=== PATIENT | female | born 1995 | race Caucasian/White ===

== ENCOUNTER 2020-04-24 12:30 | Outpatient (REF) | payer OTHER, SELFPAY ==
[2020-04-24 13:29] LABS: MANUAL DIFF FLAG NO
[2020-04-24 13:51] LABS: Basophils Percent Auto 0.6 % (0-2); Eosinophils Absolute Auto 0.1 X10*3/uL (0.0-0.4); Eosinophils Percent Auto 1.3 % (0-4); Hematocrit 41.6 % (37-47); Hemoglobin 14.1 g/dl (12.0-16.0); Imm Gran Abs Auto 0.01 X10*3/uL (0.00-0.03); Imm Gran Pct Auto 0.1 % (0.0-0.4); Lymphocytes Absolute Auto 1.9 X10*3/uL (1.2-4.9); Mean Corpuscular HGB Conc 33.9 g/dl (31.0-35.0); Mean Corpuscular Hemoglobin 29.8 pg (27.0-33.0); Mean Corpuscular Volume 87.9 fL (80-98); Mean Platelet Volume 9.6 fL (9.4-12.3); Monocytes Absolute Auto 0.4 X10*3/uL (0.1-1.2); Neutrophils Absolute Auto 4.5 X10*3/uL (2.0-8.3); Platelet Count 332 X10*3/uL (160-400); Red Blood Count 4.73 X10*6/uL (4.20-5.50); Red Cell Distribution Width 11.2 % (11.0-16.0)
[2020-04-24 14:46] LABS: Alanine Aminotransferase 13 U/L (0-31); Albumin Level 4.5 g/dL (3.5-5.0); Alkaline Phosphatase 37 U/L (39-117); Anion Gap 15 (12-20); Aspartate Amino Transferase 16 U/L (5-31); Bilirubin Total 1.1 mg/dL (0.0-1.0); Blood Urea Nitrogen 11 mg/dL (9-16); Calcium 9.5 mg/dL (8.4-10.2); Carbon Dioxide 24 mmol/L (22-29); Chloride 105 mmol/L (96-108); Estimated Glomerular Filt Rate > 60; Glucose Random 67 mg/dL (60-115); Potassium 4.8 mmol/l (3.3-5.1); Sodium 139 mmol/L (135-145); Total Protein 7.2 g/dL (6.5-8.0)
== END 2020-04-24 12:31 | disposition home or self-care (01) ==
LOC: HO.WFDLDS 12:30
PROVIDERS: Visit Provider Family Medicine
DX: R10.32 Left lower quadrant pain (principal)
CPT/HCPCS: 36415; 80053; 85025

== ENCOUNTER 2020-05-17 12:12 | Outpatient (REF) | payer OTHER, SELFPAY ==
[2020-05-17 13:25] LABS: Bilirubin Direct 0.3 mg/dL (0.0-0.5); Bilirubin Total 0.6 mg/dL (0.0-1.0)
[2020-05-17 13:29] LABS: Alanine Aminotransferase 16 U/L (0-31); Albumin Level 4.1 g/dL (3.5-5.0); Alkaline Phosphatase 52 U/L (39-117); Aspartate Amino Transferase 18 U/L (5-31); Cholesterol 170 mg/dL; HDL Cholesterol 51 mg/dL; LDL Cholesterol Calculated 109 mg/dl; Total Protein 6.8 g/dL (6.5-8.0); Triglycerides 51 mg/dL
== END 2020-05-17 12:13 | disposition home or self-care (01) ==
LOC: HO.LAB 12:12
PROVIDERS: PCP Family Medicine; Visit Provider Dermatology
DX: L70.0 Acne vulgaris (principal)
CPT/HCPCS: 36415; 80061; 80076

== ENCOUNTER 2020-05-26 20:54 | Emergency (ER) | payer OTHER, SELFPAY ==
--- NOTE | ~2020-05-26 | CT_ITS ---
EXAMINATION: CT ABDOMEN AND PELVIS WITHOUT CONTRAST CLINICAL INFORMATION: Nausea and vomiting. Lower abdominal pain. COMPARISON: 11/25/2019. TECHNIQUE: Contiguous axial thin section helical images of the abdomen and pelvis were performed without oral or IV contrast. The data set was reformatted in the coronal and sagittal planes and reviewed on an independent workstation. DLP: 394 mGy-cm. FINDINGS: The visualized lung bases are clear. The visualized portions of the heart are unremarkable. The liver is of normal size and attenuation without focal lesions nor intrahepatic biliary ductal dilation. A normal gallbladder is identified. There is no wall thickening or discernible pericholecystic fluid. The spleen, pancreas, adrenal glands are unremarkable. Both kidneys are of normal size and attenuation without hydronephrosis or nephrolithiasis. There is no abdominal free fluid. There is neither mesenteric nor retroperitoneal lymphadenopathy. Normal unopacified loops of small and large bowel are identified. A normal appendix is identified. There is an approximately 2.6 cm right ovarian cyst. There is no pelvic free fluid. The urinary bladder is unremarkable. There is neither pelvic nor inguinal lymphadenopathy. Bone windows: Neither sclerotic nor lytic bone lesions are identified. CT/CT abdomen pelvis wo con IMPRESSION: No acute abdominal or pelvic inflammatory or infectious processes. Neither hydronephrosis nor nephrolithiasis. 2.6 MET right ovarian cyst. Automated exposure control (Care Dose) Adjustment of the mA and/or kv according to patient size (this includes techniques or standardized protocols for targeted exams where dose is matched to indication / reason for exam; i.e. extremities or head).
[2020-05-26 21:07] VITALS: BP 113/57; PULSE 146; RESP 22; TEMP 37.1; O2SAT 98; BMI 22.8
[2020-05-26 21:29] VITALS: BP 121/85; PULSE 114; RESP 18; TEMP 36.8; O2SAT 99
[2020-05-26] MEDS: 0.9 % Sodium Chloride 1,000 ML 999 ML IVCONT (21:32)
[2020-05-26] MEDS: ondansetron HCL 4 MG/2 ML VIAL IVPUSH (21:33)
--- NOTE | 2020-05-26 21:33 | PC.NURSE ---
iv inserted, labs drawn, vitals obtained- cardiac cath tech applied, sinus tach low 100s, c/o generalized pain 11/20, pt medicated per order, is aware we need a urine, will continue to monitor.
[2020-05-26 21:34] LABS: Basophils Percent Auto 0.5 % (0-2); Eosinophils Percent Auto 0.3 % (0-4); Hematocrit 42.6 % (37-47); Hemoglobin 14.4 g/dl (12.0-16.0); Imm Gran Abs Auto 0.01 X10*3/uL (0.00-0.03); Imm Gran Pct Auto 0.2 % (0.0-0.4); Lymphocytes Absolute Auto 0.2 X10*3/uL (1.2-4.9); Lymphocytes Percent Auto 2.4 % (20-40); MANUAL DIFF FLAG SCAN; Mean Corpuscular HGB Conc 33.8 g/dl (31.0-35.0); Mean Corpuscular Hemoglobin 29.3 pg (27.0-33.0); Mean Corpuscular Volume 86.6 fL (80-98); Mean Platelet Volume 9.9 fL (9.4-12.3); Monocytes Absolute Auto 0.3 X10*3/uL (0.1-1.2); Neutrophils Absolute Auto 5.7 X10*3/uL (2.0-8.3); Neutrophils Percent Auto 91.6 % (45-73); Platelet Count 229 X10*3/uL (160-400); Red Blood Count 4.92 X10*6/uL (4.20-5.50); Red Cell Distribution Width 11.4 % (11.0-16.0); SCAN SMEAR FLAG 1; White Blood Count 6.2 X10*3/uL (4.8-10.8)
[2020-05-26 21:49] LABS: COVID-19 Test Negative (Negative)
--- NOTE | 2020-05-26 21:50 | ED_ITS ---
HPI - Nausea/Vomiting/Diarrhea General Chief complaint: Nausea/Vomiting/Diarrhea Stated complaint: Vomiting/body aches Time Seen by Provider: 05/26/20 21:12 Source: patient Mode of arrival: ambulatory Limitations: no limitations History of Present Illness HPI Narrative: 25-year-old female otherwise healthy presenting today with 1 day history of nausea, vomiting, no diarrhea symptoms started since this morning, patient described it as severe and constant (vomited more than 10 times today), symptoms associated with generalized body ache and joint pain, no shortness of breath or chest pain, no abdominal pain. Confirmed that she was following self quarantine and isolation unwilling face mask all the time and declined any recent sick contacts. Patient also declined any recent travel or use of antibiotic. Related Data Home Medications Medication Instructions Recorded Confirmed lamotrigine 25 mg tablet 25 mg PO DAILY tab 04/24/20 Previous Rx's Medication Instructions Recorded ibuprofen 800 mg tablet 800 mg PO Q8H PRN 10 Days #30 tab 04/24/20 polyethylene glycol 3350 17 gram 17 g PO DAILY PRN 10 Days #10 ea 04/24/20 oral powder packet norethindrone (contraceptive) 0.35 0.35 mg PO DAILY #28 tab 05/09/20 mg tablet ondansetron HCl [Zofran] 4 mg PO Q8H PRN #7 tab 05/27/20 Allergies Allergy/AdvReac Type Severity Reaction Status Date / Time No Known Allergies Allergy Verified 05/26/20 21:10 Review of Systems Review of Systems: All other systems are reviewed and are negative Constitutional: Reports as per HPI and Reports no additional constitutional complaints Eyes: Reports as per HPI and Reports no additional eye complaints Reports system reviewed and no additional complaints, except as documented Cardiovascular: Reports as per HPI and Reports no additional cardiovascular complaints Respiratory: Reports as per HPI and Reports no additional respiratory complaints Gastrointestinal: Reports as per HPI and Reports no additional gastrointestinal complaints Genitourinary: Reports no additional female genitourinary complaints Musculoskeletal: Reports no additional musculoskeletal complaints Skin/Breast: Reports system reviewed and no additional complaints, except as docu Psychiatric: Reports no additional psychiatric complaints Endocrine: Reports no additional endocrine complaints Hematologic/Lymphatic: Reports no additional hematologic/lymphatic complaints Allergic/Immunologic: Reports no additional allergic/immunologic complaints Reports system reviewed and no additional complaints, except as documented and Reports Abnormal speech present [facility] Past Medical History Medical History No known health problems Social History Social History Alcohol intake: never Smoked in Last 30 Days: No Use of substances other than those prescribed or required for medical reasons: No Advance Directives: No Advance Directives Information Provided: No Physical Exam Vital Signs: Vital Signs: Last Vital Signs Temp 98.4 F 05/26/20 23:05 Pulse 105 H 05/26/20 23:05 Resp 16 05/26/20 23:05 BP 106/65 05/26/20 23:05 Pulse Ox 98 05/26/20 23:05 Body Mass Index 22.8 Vital signs have been reviewed as normal and appeared to be correct. Blood pressure normal. Heart rate in the high range likely due to dehydration.. Respiration rate normal. Temperature normal. Oxygen saturation normal. Appearance: Alert. Oriented X3. No acute distress. Head: Normal external exam. Normocephalic. Atraumatic. No Payne signs noted. No raccoon eyes noted Eyes: PERRLA. EOMI. Conjunctiva and sclera normal. Eyelids normal. ENT: EAC normal. TM's Normal. Pharynx normal. Uvula midline. Dry mucous membranes. No trismus noted. No drooling noted. No muffled voice noted. Neck: Normal inspection. Neck supple. FROM. No adenopathy. Thyroid Normal. No meningeal signs. No neck mass noted. CVS: Normal heart rate and rhythm. Heart sound normal. No murmurs noted. Pulses normal throughout. Respiratory: No respiratory distress. Painless inspiration. Breath sounds normal. No wheezes/rales/rhonchi noted. Chest nontender. No accessory muscle usage noted or decreased air movement noted. Abdomen: Soft and nontender. Bowel sounds normal in all 4 quadrants. No d istention noted. No organomegaly noted. No visible injury noted. Back: No CVA tenderness. Full range of motion noted. Skin: Skin warm and dry. Normal skin color. Normal skin turgor. No rashes/l esions/lacerations noted. Extremities: No lower extremity edema. Extremities exhibit normal range of motion. Extremities nontender. Neuro: Oriented X 3. No motor deficit. No sensory deficit. Reflexes normal. Course Course Course Narrative: Assessment and plan. 25-year-old female came in with nausea vomiting and diarrhea, patient received IV fluid and Zofran, patient now feels better, able to tolerate p.o. intake. Will discharge the patient with Zofran prescription and encouraged to drink plenty of fluids. COVID-19 is negative today. MDM - Nausea/Vomiting/Diarrhea Lab Data Attestation: I reviewed the patient's lab results. Result diagrams: 05/26/20 21:26 05/26/20 21: Labs: Lab Results 05/26/20 05/26/20 05/26/20 Range/Units 21:26 21:26 21:26 WBC 6.2 (4.8-10.8) X10*3/uL RBC 4.92 (4.20-5.50) X10*6/uL Hgb 14.4 (12.0-16.0) g/dl Hct 42.6 (37-47) % MCV 86.6 (80-98) fL MCH 29.3 (27.0-33.0) pg MCHC 33.8 (31.0-35.0) g/dl RDW 11.4 (11.0-16.0) % Plt Count 229 D (160-400) X10*3/uL MPV 9.9 (9.4-12.3) fL Immature Gran % (Auto) 0.2 (0.0-0.4) % Neut % (Auto) 91.6 H (45-73) % Lymph % (Auto) 2.4 L (20-40) % [place] % (Auto) 5.0 (2-11) % Eos % (Auto) 0.3 (0-4) % Baso % (Auto) 0.5 (0-2) % Lymph # (Auto) 0.2 L (1.2-4.9) X10*3/uL [place] # (Auto) 0.3 (0.1-1.2) X10*3/uL Eos # (Auto) 0.0 (0.0-0.4) X10*3/uL Baso # (Auto) 0.0 (0.0-0.2) X10*3/uL Abs Immat Gran (auto) 0.01 (0.00-0.03) X10*3/uL Absolute Neuts (auto) 5.7 (2.0-8.3) X10*3/uL Absolute Nucleated RBC 0.000 (0.0-0.012) X10*3/uL Nucleated RBC % (auto) 0.0 (0.0-0.2) /100WBC Smear Tech's Comments VERIFIED Sodium 137 (135-145) mmol/L Potassium 3.9 (3.3-5.1) mmol/L Chloride 103 (96-108) mmol/L Carbon Dioxide 21 L (22-29) mmol/L Anion Gap 17 (12-20) BUN 19 H D (9-16) mg/dL Creatinine 0.67 (0.5-1.4) mg/dL Estim Creat Clear Calc 93.8 Estimated GFR > 60 Random Glucose 131 H D (60-115) mg/dL Calcium 8.3 L D (8.4-10.2) mg/dL Total Bilirubin 1.3 H (0.0-1.0) mg/dL Direct Bilirubin 0.4 (0.0-0.5) mg/dL AST 22 (5-31) U/L ALT 18 (0-31) U/L Alkaline Phosphatase 53 (39-117) U/L Total Protein 6.5 (6.5-8.0) g/dL Albumin 3.8 (3.5-5.0) g/dL Lipase 12 Cancelled (8-78) U/L Urine Color Urine Appearance Urine pH (5.0-8.0) Ur Specific [place] (1.005-1.025) Urine Protein (NEG-TRACE) MG/DL Urine Glucose (UA) (NEG) MG/DL Urine Ketones (NEG) MG/DL Urine Blood (NEG) Urine Nitrite (NEG) Ur Leukocyte Esterase (NEG) Urine Test (NEGATIVE) COVID-19 (JEAN) (Negative) COVID-19 Clin Com 05/26/20 05/26/20 Range/Units 21:26 23:15 WBC (4.8-10.8) X10*3/uL RBC (4.20-5.50) X10*6/uL Hgb (12.0-16.0) g/dl Hct (37-47) % MCV (80-98) fL MCH (27.0-33.0) pg MCHC (31.0-35.0) g/dl RDW (11.0-16.0) % Plt Count (160-400) X10*3/uL MPV (9.4-12.3) fL Immature Gran % (Auto) (0.0-0.4) % Neut % (Auto) (45-73) % Lymph % (Auto) (20-40) % [place] % (Auto) (2-11) % Eos % (Auto) (0-4) % Baso % (Auto) (0-2) % Lymph # (Auto) (1.2-4.9) X10*3/uL [place] # (Auto) (0.1-1.2) X10*3/uL Eos # (Auto) (0.0-0.4) X10*3/uL Baso # (Auto) (0.0-0.2) X10*3/uL Abs Immat Gran (auto) (0.00-0.03) X10*3/uL Absolute Neuts (auto) (2.0-8.3) X10*3/uL Absolute Nucleated RBC (0.0-0.012) X10*3/uL Nucleated RBC % (auto) (0.0-0.2) /100WBC Smear Tech's Comments Sodium (135-145) mmol/L Potassium (3.3-5.1) mmol/L Chloride (96-108) mmol/L Carbon Dioxide (22-29) mmol/L Anion Gap (12-20) BUN (9-16) mg/dL Creatinine (0.5-1.4) mg/dL Estim Creat Clear Calc Estimated GFR Random Glucose (60-115) mg/dL Calcium (8.4-10.2) mg/dL Total Bilirubin (0.0-1.0) mg/dL Direct Bilirubin (0.0-0.5) mg/dL AST (5-31) U/L ALT (0-31) U/L Alkaline Phosphatase (39-117) U/L Total Protein (6.5-8.0) g/dL Albumin (3.5-5.0) g/dL Lipase (8-78) U/L Urine Color DARK YELLOW Urine Appearance CLEAR Urine pH 7.0 (5.0-8.0) Ur Specific [place] 1.025 (1.005-1.025) Urine Protein TRACE (NEG-TRACE) MG/DL Urine Glucose (UA) NEG (NEG) MG/DL Urine Ketones >=80 (NEG) MG/DL Urine Blood NEG (NEG) Urine Nitrite NEG (NEG) Ur Leukocyte Esterase NEG (NEG) Urine Test NEGATIVE (NEGATIVE) COVID-19 (JEAN) Negative (Negative) COVID-19 Clin Com See Note Imaging Data CT scan - abdomen: Radiologist's impression: No acute abdominal or pelvic inflammatory or infectious processes. Neither hydronephrosis nor nephrolithiasis. 2.6 MET right ovarian cyst. Discharge Plan Discharge Clinical Impression: Gastroenteritis Patient Disposition: Home, Self-Care Instructions: Acute Nausea and Vomiting (ED) Prescriptions: New ondansetron HCl [Zofran] 4 mg tablet 4 mg PO Q8H PRN (Reason: nausea and vomiting) Qty: 7 RF: 0 No Action norethindrone (contraceptive) 0.35 mg tablet 0.35 mg PO DAILY Qty: 28 RF: 0 lamotrigine 25 mg tablet 25 mg PO DAILY RF: 0 polyethylene glycol 3350 [Miralax] 17 gram powder in packet 17 g PO DAILY PRN (Reason: constipation) 10 Days Qty: 10 RF: 0 ibuprofen 800 mg tablet 800 mg PO Q8H PRN (Reason: pain) 10 Days Qty: 30 RF: 0 Referrals: Physician,Unknown [Primary Care Provider] - 2 days
[2020-05-26 21:54] LABS: SLIDE REVIEW VERIFIED
[2020-05-26 21:59] LABS: Alanine Aminotransferase 18 U/L (0-31); Albumin Level 3.8 g/dL (3.5-5.0); Alkaline Phosphatase 53 U/L (39-117); Anion Gap 17 (12-20); Aspartate Amino Transferase 22 U/L (5-31); Bilirubin Direct 0.4 mg/dL (0.0-0.5); Bilirubin Total 1.3 mg/dL (0.0-1.0); Blood Urea Nitrogen 19 mg/dL (9-16); Calcium 8.3 mg/dL (8.4-10.2); Carbon Dioxide 21 mmol/L (22-29); Chloride 103 mmol/L (96-108); Creatinine Clr Calc Pharmacy 93.8; Estimated Glomerular Filt Rate > 60; Glucose Random 131 mg/dL (60-115); Lipase 12 U/L (8-78); Potassium 3.9 mmol/L (3.3-5.1); Sodium 137 mmol/L (135-145); Total Protein 6.5 g/dL (6.5-8.0)
[2020-05-26 22:00] VITALS: BP 107/67; PULSE 108; RESP 20; TEMP 37.9; O2SAT 99
[2020-05-26 23:05] VITALS: BP 106/65; PULSE 105; RESP 16; TEMP 36.9; O2SAT 98
[2020-05-26 23:41] LABS: Glucose Urine UA NEG (NEG); Leukocyte Esterase Urine NEG (NEG); Nitrite Urine NEG (NEG); Specific Gravity - Urine 1.025 (1.005-1.025); Urine Blood NEG (NEG); Urine Ketones >=80 MG/DL (NEG); Urine Protein TRACE MG/DL (NEG-TRACE)
[2020-05-26 23:45] LABS: Appearance Urine CLEAR; Color Urine DARK YELLOW
[2020-05-27 00:24] LABS: UPreg QC Valid YES; Urine Pregnancy NEGATIVE (NEGATIVE)
--- NOTE | 2020-05-27 00:34 | PC.NURSE ---
PT TO CT IN STRETCHER.
== END 2020-05-27 01:40 | disposition home or self-care (01) ==
PROVIDERS: Emergency Provider Emergency Medicine
DX: K52.9 Noninfective gastroenteritis and colitis, unspecified (principal); Z20.822 Contact with and (suspected) exposure to COVID-19
CPT/HCPCS: 36415; 74176; 80048; 80076; 81003; 81025; 83690; 85025; 87635; 96361; 96374; 99284; J2405

== ENCOUNTER 2020-06-14 11:12 | Outpatient (REF) | payer OTHER, SELFPAY ==
[2020-06-14 11:49] LABS: MANUAL DIFF FLAG NO
[2020-06-14 11:52] LABS: Basophils Absolute Auto 0.1 X10*3/uL (0.0-0.2); Basophils Percent Auto 1.6 % (0-2); Eosinophils Absolute Auto 0.2 X10*3/uL (0.0-0.4); Eosinophils Percent Auto 3.4 % (0-4); Hematocrit 40.5 % (37-47); Hemoglobin 13.6 g/dl (12.0-16.0); Imm Gran Abs Auto 0.01 X10*3/uL (0.00-0.03); Imm Gran Pct Auto 0.2 % (0.0-0.4); Lymphocytes Absolute Auto 1.7 X10*3/uL (1.2-4.9); Lymphocytes Percent Auto 37.7 % (20-40); Mean Corpuscular HGB Conc 33.6 g/dl (31.0-35.0); Mean Corpuscular Hemoglobin 29.2 pg (27.0-33.0); Mean Corpuscular Volume 86.9 fL (80-98); Mean Platelet Volume 9.5 fL (9.4-12.3); Monocytes Absolute Auto 0.4 X10*3/uL (0.1-1.2); Monocytes Percent Auto 8.8 % (2-11); Neutrophils Absolute Auto 2.1 X10*3/uL (2.0-8.3); Neutrophils Percent Auto 48.3 % (45-73); Platelet Count 281 X10*3/uL (160-400); Red Blood Count 4.66 X10*6/uL (4.20-5.50); Red Cell Distribution Width 11.9 % (11.0-16.0); White Blood Count 4.4 X10*3/uL (4.8-10.8)
[2020-06-14 12:32] LABS: Alanine Aminotransferase 20 U/L (0-31); Albumin Level 4.3 g/dL (3.5-5.0); Alkaline Phosphatase 55 U/L (39-117); Anion Gap 11 (12-20); Aspartate Amino Transferase 20 U/L (5-31); Bilirubin Total 0.9 mg/dL (0.0-1.0); Blood Urea Nitrogen 14 mg/dL (9-16); Calcium 9.4 mg/dL (8.4-10.2); Carbon Dioxide 26 mmol/L (22-29); Chloride 106 mmol/L (96-108); Estimated Glomerular Filt Rate > 60; Glucose Random 88 mg/dL (60-115); Potassium 4.8 mmol/L (3.3-5.1); Sodium 138 mmol/L (135-145); Total Protein 7.1 g/dL (6.5-8.0)
[2020-06-14 12:52] LABS: TSH reflex Free T4 0.84 uIU/mL (0.32-4.0)
== END 2020-06-14 11:13 | disposition home or self-care (01) ==
LOC: HO.LAB 11:12
PROVIDERS: PCP Family Medicine; Visit Provider Family Medicine
DX: Z00.00 Encounter for general adult medical examination without abnormal findings (principal); R63.5 Abnormal weight gain
CPT/HCPCS: 36415; 80053; 84443; 85025

== ENCOUNTER 2020-08-21 09:53 | Outpatient (REF) | payer OTHER, SELFPAY ==
[2020-08-21 11:05] LABS: Alanine Aminotransferase 15 U/L (0-31); Albumin Level 4.2 g/dL (3.5-5.0); Alkaline Phosphatase 48 U/L (39-117); Aspartate Amino Transferase 14 U/L (5-31); Bilirubin Direct 0.3 mg/dL (0.0-0.5); Bilirubin Total 0.9 mg/dL (0.0-1.0); Cholesterol 163 mg/dL; HDL Cholesterol 48 mg/dL; LDL Cholesterol Calculated 107 mg/dl; Total Protein 6.3 g/dL (6.5-8.0); Triglycerides 41 mg/dL
[2020-08-21 11:11] LABS: Reflex LDLD? No
== END 2020-08-21 09:54 | disposition home or self-care (01) ==
LOC: HO.LAB 09:53
PROVIDERS: PCP Family Medicine; Visit Provider Physician Assistant Medical
DX: L70.0 Acne vulgaris (principal); Z79.899 Other long term (current) drug therapy
CPT/HCPCS: 36415; 80061; 80076

== ENCOUNTER 2020-09-27 14:27 | Outpatient (REF) | payer OTHER, SELFPAY ==
[2020-09-27 15:29] LABS: Alanine Aminotransferase 24 U/L (0-31); Albumin Level 4.5 g/dL (3.5-5.0); Alkaline Phosphatase 40 U/L (39-117); Aspartate Amino Transferase 21 U/L (5-31); Bilirubin Direct 0.2 mg/dL (0.0-0.5); Bilirubin Total 0.4 mg/dL (0.0-1.0); Cholesterol 208 mg/dL; HDL Cholesterol 64 mg/dL; LDL Cholesterol Calculated 128 mg/dl; Total Protein 7.2 g/dL (6.5-8.0); Triglycerides 83 mg/dL
[2020-09-27 15:31] LABS: Alanine Aminotransferase 23 U/L (0-31); Albumin Level 4.5 g/dL (3.5-5.0); Alkaline Phosphatase 41 U/L (39-117); Anion Gap 10 (12-20); Aspartate Amino Transferase 21 U/L (5-31); Bilirubin Total 0.4 mg/dL (0.0-1.0); Blood Urea Nitrogen 11 mg/dL (9-16); Calcium 9.8 mg/dL (8.4-10.2); Carbon Dioxide 25 mmol/L (22-29); Chloride 106 mmol/L (96-108); Estimated Glomerular Filt Rate > 60; Glucose Random 85 mg/dL (60-115); Potassium 5.2 mmol/L (3.3-5.1); Sodium 136 mmol/L (135-145); Total Protein 7.2 g/dL (6.5-8.0)
== END 2020-09-27 14:28 | disposition home or self-care (01) ==
LOC: HO.LAB 14:27
PROVIDERS: Absent Provider Physician Assistant Medical; PCP Family Medicine; Visit Provider Family Medicine
DX: L70.0 Acne vulgaris (principal); B35.1 Tinea unguium; Z79.899 Other long term (current) drug therapy
CPT/HCPCS: 36415; 80053; 80061; 80076; 82248

== ENCOUNTER 2020-10-25 16:09 | Outpatient (REF) | payer OTHER, SELFPAY ==
[2020-10-25 17:46] LABS: Alanine Aminotransferase 25 U/L (0-31); Albumin Level 4.4 g/dL (3.5-5.0); Alkaline Phosphatase 39 U/L (39-117); Aspartate Amino Transferase 25 U/L (5-31); Bilirubin Direct < 0.2 mg/dL (0.0-0.5); Bilirubin Total 0.4 mg/dL (0.0-1.0); Cholesterol 229 mg/dL; HDL Cholesterol 54 mg/dL; LDL Cholesterol Calculated 140 mg/dl; Total Protein 7.4 g/dL (6.5-8.0); Triglycerides 177 mg/dL
== END 2020-10-25 16:10 | disposition home or self-care (01) ==
LOC: HO.LAB 16:09
PROVIDERS: Absent Provider Physician Assistant Medical; PCP Family Medicine; Visit Provider Family Medicine
DX: L70.0 Acne vulgaris (principal); L85.3 Xerosis cutis; B35.1 Tinea unguium; Z79.899 Other long term (current) drug therapy
CPT/HCPCS: 36415; 80061; 80076

== ENCOUNTER 2020-11-26 16:10 | Outpatient (REF) | payer OTHER, SELFPAY ==
[2020-11-26 17:25] LABS: Alanine Aminotransferase 21 U/L (0-31); Albumin Level 4.2 g/dL (3.5-5.0); Alkaline Phosphatase 37 U/L (39-117); Aspartate Amino Transferase 19 U/L (5-31); Bilirubin Direct < 0.2 mg/dL (0.0-0.5); Bilirubin Total 0.2 mg/dL (0.0-1.0); Cholesterol 195 mg/dL; HDL Cholesterol 45 mg/dL; LDL Cholesterol Calculated 111 mg/dl; Total Protein 6.9 g/dL (6.5-8.0); Triglycerides 198 mg/dL
[2020-11-28 02:26] LABS: LDL Cholesterol Direct 124 mg/dL (<100)
== END 2020-11-26 16:11 | disposition home or self-care (01) ==
LOC: HO.LAB 16:10
PROVIDERS: PCP Family Medicine; Visit Provider Physician Assistant Medical
DX: L70.0 Acne vulgaris (principal); L85.3 Xerosis cutis; Z79.899 Other long term (current) drug therapy
CPT/HCPCS: 36415; 80061; 80076; 83721

== ENCOUNTER 2020-12-27 15:00 | Outpatient (REF) | payer OTHER, SELFPAY ==
[2020-12-27 16:03] LABS: MANUAL DIFF FLAG NO
[2020-12-27 16:12] LABS: Basophils Percent Auto 0.4 % (0-2); Eosinophils Percent Auto 0.6 % (0-4); Hematocrit 36.6 % (37-47); Hemoglobin 12.5 g/dl (12.0-16.0); Imm Gran Abs Auto 0.01 X10*3/uL (0.00-0.03); Imm Gran Pct Auto 0.2 % (0.0-0.4); Lymphocytes Absolute Auto 1.7 X10*3/uL (1.2-4.9); Lymphocytes Percent Auto 35.3 % (20-40); Mean Corpuscular HGB Conc 34.2 g/dl (31.0-35.0); Mean Corpuscular Hemoglobin 28.7 pg (27.0-33.0); Mean Corpuscular Volume 84.1 fL (80-98); Mean Platelet Volume 9.9 fL (9.4-12.3); Monocytes Absolute Auto 0.3 X10*3/uL (0.1-1.2); Monocytes Percent Auto 6.7 % (2-11); Neutrophils Absolute Auto 2.8 X10*3/uL (2.0-8.3); Neutrophils Percent Auto 56.8 % (45-73); Platelet Count 338 X10*3/uL (160-400); Red Blood Count 4.35 X10*6/uL (4.20-5.50); Red Cell Distribution Width 11.7 % (11.0-16.0); White Blood Count 4.9 X10*3/uL (4.8-10.8)
[2020-12-27 16:34] LABS: Alanine Aminotransferase 25 U/L (0-31); Albumin Level 4.4 g/dL (3.5-5.0); Alkaline Phosphatase 39 U/L (39-117); Anion Gap 11 (12-20); Aspartate Amino Transferase 25 U/L (5-31); Bilirubin Direct 0.2 mg/dL (0.0-0.5); Bilirubin Total 0.7 mg/dL (0.0-1.0); Blood Urea Nitrogen 7 mg/dL (9-16); Calcium 9.8 mg/dL (8.4-10.2); Carbon Dioxide 25 mmol/L (22-29); Chloride 102 mmol/L (96-108); Cholesterol 232 mg/dL; Estimated Glomerular Filt Rate > 60; Glucose Fasting 80 mg/dL (60-99); HDL Cholesterol 49 mg/dL; LDL Cholesterol Calculated 145 mg/dl; Potassium 4.1 mmol/L (3.3-5.1); Sodium 134 mmol/L (135-145); Total Protein 7.3 g/dL (6.5-8.0); Triglycerides 190 mg/dL
[2020-12-27 17:51] LABS: TSH reflex Free T4 0.84 uIU/mL (0.32-4.0)
== END 2020-12-27 15:01 | disposition home or self-care (01) ==
LOC: HO.LAB 15:00
PROVIDERS: Absent Provider Family Medicine; PCP Family Medicine; Visit Provider Physician Assistant Medical
DX: Z00.00 Encounter for general adult medical examination without abnormal findings (principal); Z20.822 Contact with and (suspected) exposure to COVID-19; B35.1 Tinea unguium; L70.0 Acne vulgaris; K13.0 Diseases of lips; L85.3 Xerosis cutis; Z79.899 Other long term (current) drug therapy
CPT/HCPCS: 80053; 80061; 80076; 82248; 84443; 85025; U0003; U0005

== ENCOUNTER 2021-01-16 15:47 | Outpatient (REF) | payer OTHER, SELFPAY ==
[2021-01-16 17:09] LABS: Erythrocyte Sedimentation Rate 16 MM/HR (0-20)
[2021-01-18 13:35] LABS: CRP High Sensitivity 3.8 mg/L
[2021-01-18 23:57] LABS: Anti Nuclear Antibody Screen POSITIVE (NEGATIVE); Anti Nuclear Antibody Titer 1:40 titer
== END 2021-01-16 15:48 | disposition home or self-care (01) ==
LOC: HO.LAB 15:47
PROVIDERS: PCP Family Medicine; Visit Provider Family Medicine
DX: M79.10 Myalgia, unspecified site (principal); R53.83 Other fatigue
CPT/HCPCS: 36415; 85652; 86038; 86039; 86141

== ENCOUNTER 2021-01-31 14:23 | Outpatient (REF) | payer OTHER, SELFPAY ==
[2021-01-31 15:30] LABS: Alanine Aminotransferase 22 U/L (0-31); Albumin Level 4.5 g/dL (3.5-5.0); Alkaline Phosphatase 45 U/L (39-117); Aspartate Amino Transferase 22 U/L (5-31); Bilirubin Direct 0.2 mg/dL (0.0-0.5); Bilirubin Total 0.4 mg/dL (0.0-1.0); Cholesterol 277 mg/dL; HDL Cholesterol 48 mg/dL; LDL Cholesterol Calculated 193 mg/dl; Total Protein 7.5 g/dL (6.5-8.0); Triglycerides 183 mg/dL
== END 2021-01-31 14:24 | disposition home or self-care (01) ==
LOC: HO.LAB 14:23
PROVIDERS: PCP Family Medicine; Visit Provider Physician Assistant Medical
DX: L70.0 Acne vulgaris (principal); L85.3 Xerosis cutis; K13.0 Diseases of lips; Z79.899 Other long term (current) drug therapy
CPT/HCPCS: 36415; 80061; 80076

== ENCOUNTER 2021-03-06 15:32 | Outpatient (REF) | payer OTHER, SELFPAY ==
[2021-03-06 16:48] LABS: Alanine Aminotransferase 28 U/L (0-31); Albumin Level 4.6 g/dL (3.5-5.0); Alkaline Phosphatase 48 U/L (39-117); Aspartate Amino Transferase 27 U/L (5-31); Bilirubin Direct 0.2 mg/dL (0.0-0.5); Bilirubin Total 0.4 mg/dL (0.0-1.0); Cholesterol 239 mg/dL; HDL Cholesterol 42 mg/dL; LDL Cholesterol Calculated 151 mg/dl; Total Protein 7.7 g/dL (6.5-8.0); Triglycerides 230 mg/dL
== END 2021-03-06 15:33 | disposition home or self-care (01) ==
LOC: HO.LAB 15:32
PROVIDERS: PCP Family Medicine; Visit Provider Physician Assistant Medical
DX: L70.0 Acne vulgaris (principal); L85.3 Xerosis cutis; Z79.899 Other long term (current) drug therapy; K13.0 Diseases of lips
CPT/HCPCS: 36415; 80061; 80076

== ENCOUNTER 2021-04-11 14:58 | Outpatient (REF) | payer OTHER, SELFPAY ==
[2021-04-11 16:08] LABS: Alanine Aminotransferase 26 U/L (0-31); Albumin Level 4.3 g/dL (3.5-5.0); Alkaline Phosphatase 51 U/L (39-117); Aspartate Amino Transferase 20 U/L (5-31); Bilirubin Direct 0.2 mg/dL (0.0-0.5); Bilirubin Total 0.5 mg/dL (0.0-1.0); Cholesterol 236 mg/dL; HDL Cholesterol 49 mg/dL; LDL Cholesterol Calculated 131 mg/dl; Total Protein 7.6 g/dL (6.5-8.0); Triglycerides 284 mg/dL
[2021-04-12 06:51] LABS: LDL Cholesterol Direct 149 mg/dL (<100)
== END 2021-04-11 14:59 | disposition home or self-care (01) ==
LOC: HO.LAB 14:58
PROVIDERS: PCP Family Medicine; Visit Provider Physician Assistant Medical
DX: L70.0 Acne vulgaris (principal); L85.3 Xerosis cutis; K13.0 Diseases of lips; Z79.899 Other long term (current) drug therapy
CPT/HCPCS: 36415; 80061; 80076; 83721

== ENCOUNTER 2021-05-22 15:49 | Outpatient (REF) | payer OTHER, SELFPAY ==
[2021-05-22 16:17] LABS: MANUAL DIFF FLAG NO
[2021-05-22 16:23] LABS: Hematocrit 38.2 % (37.0-47.0); Hemoglobin 12.9 g/dl (12.0-16.0); Lymphocytes Absolute Auto 1.6 X10*3/uL (1.2-4.9); Lymphocytes Percent Auto 51.6 % (20-40); Mean Corpuscular HGB Conc 33.8 g/dl (31.0-35.0); Mean Corpuscular Hemoglobin 28.8 pg (27.0-33.0); Mean Corpuscular Volume 85.3 fL (80.0-98.0); Mean Platelet Volume 8.9 fL (9.4-12.3); Monocytes Absolute Auto 0.3 X10*3/uL (0.1-1.2); Monocytes Percent Auto 10.4 % (2-11); Neutrophils Absolute Auto 1.2 x10*3/uL (2.0-8.3); Platelet Count 269 X10*3/uL (160-400); Red Blood Count 4.48 X10*6/uL (4.20-5.50); Red Cell Distribution Width 11.4 % (11.0-16.0); White Blood Count 3.2 X10*3/uL (4.8-10.8)
[2021-05-22 16:32] LABS: Estimated Average Glucose 88 mg/dL; Hemoglobin A1c % 4.7 %
[2021-05-22 17:40] LABS: Anion Gap 9 (12-20); Carbon Dioxide 28 mmol/L (22-29); Chloride 105 mmol/L (96-108); Cholesterol 276 mg/dL; Estimated Glomerular Filt Rate > 60; Glucose Random 88 mg/dL (60-115); HDL Cholesterol 58 mg/dL; LDL Cholesterol Calculated 196 mg/dl; Potassium 4.3 mmol/L (3.3-5.1); Sodium 138 mmol/L (135-145); Triglycerides 111 mg/dL
[2021-05-22 17:55] LABS: Blood Urea Nitrogen 10 mg/dL (9-16); Calcium 9.9 mg/dL (8.4-10.2)
== END 2021-05-22 15:50 | disposition home or self-care (01) ==
LOC: HO.LAB 15:49
PROVIDERS: PCP Family Medicine; Visit Provider Registered Nurse Psychiatric/Mental Health
DX: F41.1 Generalized anxiety disorder (principal); F32.9 Major depressive disorder, single episode, unspecified
CPT/HCPCS: 36415; 80048; 80061; 80335; 83036; 85025

== ENCOUNTER → 2021-05-23 15:00 | Outpatient (REF) | payer OTHER, SELFPAY ==
--- NOTE | 2021-05-23 | ECG_ITS ---
Test Reason : med therapy Blood Pressure : / mmHG Vent. Rate : 077 BPM Atrial Rate : 077 BPM P-R Int : 192 ms QRS Dur : 072 ms QT Int : 346 ms P-R-T Axes : 070 033 046 degrees QTc Int : 391 ms Normal sinus rhythm Low voltage QRS Borderline ECG When compared with ECG of 20-AUG-2012 22:39, nonspecific T wave changes not present in precordial leads Referred By: ALY HIGGINBOTHAM Electronically Signed By:Dwight Loera
== END ==
LOC: HO.CARD 15:00
PROVIDERS: PCP Family Medicine; Visit Provider Registered Nurse Psychiatric/Mental Health
DX: I21.9 Acute myocardial infarction, unspecified (principal)
CPT/HCPCS: 93005

== ENCOUNTER 2021-06-12 16:21 | Outpatient (REF) | payer OTHER, SELFPAY | END 2021-06-12 16:22 | disposition home or self-care (01) | LOC: HO.LAB 16:21 | PROVIDERS: PCP Family Medicine; Visit Provider Registered Nurse Psychiatric/Mental Health | DX: F32.9 Major depressive disorder, single episode, unspecified (principal) | CPT/HCPCS: 80335 ==

== ENCOUNTER 2021-10-22 12:44 | Outpatient (REF) | payer OTHER, SELFPAY ==
[2021-10-22 13:17] LABS: MANUAL DIFF FLAG NO
[2021-10-22 13:24] LABS: Basophils Percent Auto 0.3 % (0-2); Eosinophils Absolute Auto 0.1 X10*3/uL (0.0-0.4); Eosinophils Percent Auto 1.9 % (0-4); Hematocrit 37.9 % (37.0-47.0); Hemoglobin 13.1 g/dl (12.0-16.0); Lymphocytes Absolute Auto 1.8 X10*3/uL (1.2-4.9); Lymphocytes Percent Auto 48.5 % (20-40); Mean Corpuscular HGB Conc 34.6 g/dl (31.0-35.0); Mean Corpuscular Hemoglobin 28.9 pg (27.0-33.0); Mean Corpuscular Volume 83.7 fL (80.0-98.0); Mean Platelet Volume 9.4 fL (9.4-12.3); Monocytes Absolute Auto 0.3 X10*3/uL (0.1-1.2); Monocytes Percent Auto 7.4 % (2-11); Neutrophils Absolute Auto 1.5 x10*3/uL (2.0-8.3); Neutrophils Percent Auto 41.9 % (45-73); Platelet Count 332 X10*3/uL (160-400); Red Blood Count 4.53 X10*6/uL (4.20-5.50); Red Cell Distribution Width 11.6 % (11.0-16.0); White Blood Count 3.7 X10*3/uL (4.8-10.8)
[2021-10-22 14:01] LABS: Alanine Aminotransferase 29 U/L (0-31); Albumin Level 4.3 g/dL (3.5-5.0); Alkaline Phosphatase 46 U/L (39-117); Anion Gap 12 (12-20); Aspartate Amino Transferase 22 U/L (5-31); Bilirubin Total 0.4 mg/dL (0.0-1.0); Blood Urea Nitrogen 13 mg/dL (9-16); Calcium 9.6 mg/dL (8.4-10.2); Carbon Dioxide 24 mmol/L (22-29); Chloride 105 mmol/L (96-108); Erythrocyte Sedimentation Rate 23 MM/HR (0-20); Estimated Glomerular Filt Rate > 60; Glucose Random 92 mg/dL (60-115); Iron 88 mcg/dL (30-160); Percent Iron Saturation 19 % (15-50); Potassium 4.4 mmol/L (3.3-5.1); Sodium 137 mmol/L (135-145); Total Iron Binding Capacity 471 mcg/dL (228-428); Total Protein 7.4 g/dL (6.5-8.0); Unsaturated Iron Binding 383 ug/dL
[2021-10-22 14:17] LABS: TSH reflex Free T4 1.67 uIU/mL (0.32-4.0)
[2021-10-22 14:23] LABS: Rheumatoid Factor < 15.0 IU/mL (<15.0)
[2021-10-22 14:37] LABS: Folate 13.2 ng/mL (> or = 4.0); Vitamin B12 611 pg/mL (200-900)
[2021-10-24 17:35] LABS: CRP High Sensitivity 6.4 mg/L
[2021-10-25 14:22] LABS: Anti Nuclear Antibody Screen NEGATIVE (NEGATIVE)
== END 2021-10-22 12:45 | disposition home or self-care (01) ==
LOC: HO.WFDLDS 12:44
PROVIDERS: Visit Provider Family Medicine
DX: Z00.00 Encounter for general adult medical examination without abnormal findings (principal); M25.50 Pain in unspecified joint; R20.8 Other disturbances of skin sensation; E53.8 Deficiency of other specified B group vitamins
CPT/HCPCS: 36415; 80053; 82607; 82746; 83540; 84443; 85025; 85652; 86038; 86039; 86141; 86431

== ENCOUNTER 2022-04-22 12:40 | Outpatient (REF) | payer OTHER, SELFPAY ==
[2022-04-23 13:24] LABS: Lyme Abs Screen <0.90 index
== END 2022-04-22 12:41 | disposition home or self-care (01) ==
LOC: HO.WFDLDS 12:40
PROVIDERS: Visit Provider Family Medicine
DX: M25.50 Pain in unspecified joint (principal)
CPT/HCPCS: 36415; 86617; 86618

== ENCOUNTER → 2022-07-07 10:18 | Outpatient (BNVA) | payer OTHER, SELFPAY | PROVIDERS: PCP Family Medicine; Visit Provider Internal Medicine Rheumatology | DX: M25.50 Pain in unspecified joint (principal); M79.7 Fibromyalgia; R53.83 Other fatigue; F33.1 Major depressive disorder, recurrent, moderate | CPT/HCPCS: 99202 ==

== ENCOUNTER 2022-07-07 11:33 | Outpatient (REF) | payer OTHER, SELFPAY ==
[2022-07-07 13:40] LABS: MANUAL DIFF FLAG NO
[2022-07-07 13:55] LABS: Basophils Percent Auto 0.9 % (0-2); Eosinophils Absolute Auto 0.1 X10*3/uL (0.0-0.4); Eosinophils Percent Auto 1.6 % (0-4); Hematocrit 37.3 % (37.0-47.0); Hemoglobin 12.6 g/dl (12.0-16.0); Imm Gran Abs Auto 0.01 X10*3/uL (0.00-0.03); Imm Gran Pct Auto 0.2 % (0.0-0.4); Lymphocytes Absolute Auto 1.9 X10*3/uL (1.2-4.9); Lymphocytes Percent Auto 42.5 % (20-40); Mean Corpuscular HGB Conc 33.8 g/dl (31.0-35.0); Mean Corpuscular Hemoglobin 28.3 pg (27.0-33.0); Mean Corpuscular Volume 83.8 fL (80.0-98.0); Mean Platelet Volume 9.7 fL (9.4-12.3); Monocytes Absolute Auto 0.4 X10*3/uL (0.1-1.2); Neutrophils Absolute Auto 2.1 x10*3/uL (2.0-8.3); Neutrophils Percent Auto 46.8 % (45-73); Platelet Count 308 X10*3/uL (160-400); Red Blood Count 4.45 X10*6/uL (4.20-5.50); Red Cell Distribution Width 11.5 % (11.0-16.0); White Blood Count 4.5 X10*3/uL (4.8-10.8)
[2022-07-07 14:23] LABS: C Reactive Protein 0.44 mg/dL (< or = 0.50); Iron 98 mcg/dL (30-160); Percent Iron Saturation 28 % (15-50); Total Iron Binding Capacity 355 mcg/dL (228-428); Unsaturated Iron Binding 257 ug/dL
[2022-07-07 15:42] LABS: Erythrocyte Sedimentation Rate 14 MM/HR (0-20)
[2022-07-07 15:43] LABS: Creatinine Urine 312.25 mg/dL; Protein/Creatinine Ratio, Ur 0.04 (<0.2); Total Protein Urine Random 13 mg/dL (<12)
== END 2022-07-07 11:34 | disposition home or self-care (01) ==
LOC: HO.10HDL 11:33
PROVIDERS: Visit Provider Internal Medicine Rheumatology
DX: M25.50 Pain in unspecified joint (principal); M79.7 Fibromyalgia; F33.1 Major depressive disorder, recurrent, moderate; Z79.899 Other long term (current) drug therapy
CPT/HCPCS: 36415; 82550; 83540; 84156; 84443; 85025; 85652; 86140

== ENCOUNTER → 2022-08-27 08:10 | Outpatient (BNVA) | payer BC, OTHER, SELFPAY | PROVIDERS: PCP Family Medicine; Visit Provider Nurse Practitioner Family | DX: G47.19 Other hypersomnia (principal) | CPT/HCPCS: 99202 ==

== ENCOUNTER 2022-12-04 14:10 | Outpatient (AMB) | payer OTHER, SELFPAY ==
--- NOTE | 2022-12-04 14:11 | MHC.OFFVIS ---
Intake Vital Signs 12/04/22 14:13 Weight 139 lb 4 oz BP 100/62 Blood Pressure Location Rt brachial Position Sitting Pulse 88 Pulse Source Pulse Oximeter Pulse Oximetry (%) 98 Oxygen Delivery Method Room Air Intake Visit Reasons: 3m follow up hypersomnia - LVM Intake Note: Pt presents today fup hypersomnia , states shes still very sleepy c little to no relief Allergies No Known Allergies Allergy (Verified 12/04/22 14:15) HPI HPI Comments History of Present Illness Details 27 y/o female patient presents for follow up of excessive daytime sleepiness. Pt reports that her psychiatrist switch Bupropion to Cymbalta. Pt did not notice any difference yet. She still has strong feeling of sleepiness. She work second shift, 3-11:30 pm. Pt reports that she is having very hard time getting out of bed. She had a MSLT this week and result is pending. Denies hallucination when she fall asleep or wake up. Denies loss of muscle strength with strong feeling. No family hx of narcolepsy. Pt has hx depression, see psychiatrist every 6 weeks. [facility] Medical History No known health problems Surgical History History of decompression of ulnar nerve Family History Father Cancer of thyroid Mother Cancer of thyroid Brother No problems noted. Brother No problems noted. Sister No problems noted. Sister No problems noted. 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 Review of Systems Const All systems reviewed & are unremarkable except as noted in HPI and below ENT Reports Normal hearing present Neuro Reports Normal hearing present Physical Exam Vital Signs: Last Vital Signs Pulse 88 12/04/22 14:13 BP 100/62 12/04/22 14:13 Pulse Ox 98 12/04/22 14:13 Oxygen Delivery Method Room Air 12/04/22 14:13 Const General: cooperative Nutritional Appearance: average body habitus Orientation/consciousness: patient oriented x3 Neck Neck: Yes full ROM and Yes supple Resp Effort & Inspection: normal respiratory effort and able to speak in complete sentences Neuro General: patient oriented x3, gait normal and moves all extremities Cranial nerves: Yes Bilaterally intact EOM present, Yes Normal facial strength present, Yes Midline tongue present, Yes Symmetric palate elevation present, Yes Normal hearing present, Yes Ability to bilaterally rotate head present and Yes Ability to bilaterally elevate shoulders present Cognition (Neuro): normal cognition Gait exam (Neuro): Normal gait present Motor exam (neuro): 5/5 motor strength present throughout, Pronator motor function not present and no tremor noted Psych Appearance: grossly normal Mental Status: mental status grossly normal Speech and movement: Normal speech and movement present Affect: normal affect Attitude: cooperative Assessment & Plan Assessment & Plan (1) Excessive daytime sleepiness: Code(s): G47.19 - Other hypersomnia Plan Will f/u with pt after MSLT result available to discuss results and appropriate treatment options. Advised patent to try vitamin D3 1000 unit daily. Continue to practice sleep hygiene, having routine sleep schedule. Encouraged well balanced diet and daily exercise. Pt to call with any worsening concerns or questions. Medications: New cholecalciferol (vitamin D3) 25 mcg PO DAILY 30 caps 5RF 30 days Coding Level of Care Code Est Pt Level 3 (81677) Diagnoses Excessive daytime sleepiness G47.19
[2022-12-04 14:13] VITALS: BP 100/62; PULSE 88; O2SAT 98
== END 2022-12-04 14:25 | disposition home or self-care (01) ==
PROVIDERS: Visit Provider Nurse Practitioner Family
DX: G47.19 Other hypersomnia (principal)
CPT/HCPCS: 99213

== ENCOUNTER → 2022-12-04 14:10 | Outpatient (BNVA) | payer BC, OTHER, SELFPAY | PROVIDERS: Visit Provider Nurse Practitioner Family | DX: G47.19 Other hypersomnia (principal) | CPT/HCPCS: 99212 ==

== ENCOUNTER 2023-09-16 14:01 | Outpatient (AMB) | payer BC, SELFPAY ==
--- NOTE | 2023-09-16 14:11 | A.OFFVIS_ITS ---
Vital Signs 09/16/23 14:13 Height 5 ft Weight 154 lb 2 oz BMI 30.1 BP 118/68 Blood Pressure Location Rt brachial Position Sitting Respiration 16 Pulse 101 H Pulse Source Pulse Oximeter Pulse Oximetry (%) 97 Oxygen Delivery Method Room Air Intake Visit Reasons: 3m f/u hypersomnia - Confirmed Intake Note: Pt presents to the office for follow up after 10 months for excessive daytime somnolence. She requests a refill on her modafinil- she has been off this for 3 months. 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 MSLT was c/w hypersomnia . she is on duloxetine 40mg bid and is stable She still has strong feeling of sleepiness. She works first shift, 6am - 2.30pm. No daytime naps she goes to bed at 8pm wakes up at 4.45 am Denies hallucination when she fall asleep or wake up. Denies loss of muscle strength with strong feeling. No family hx of narcolepsy. Pt has hx depression, see psychiatrist every 6 weeks. [facility] Medical History No known health problems Surgical History History of decompression of ulnar nerve Family History Father Cancer of thyroid Mother Cancer of thyroid Brother No problems noted. Brother No problems noted. Sister No problems noted. Sister No problems noted. 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 Review of Systems ENT Reports Normal hearing present Neuro Reports Normal hearing present Physical Exam Vital Signs: Last Vital Signs Pulse 101 H 09/16/23 14:13 Resp 16 09/16/23 14:13 BP 118/68 09/16/23 14:13 Pulse Ox 97 09/16/23 14:13 Oxygen Delivery Method Room Air 09/16/23 14:13 BMI result Body Mass Index 30.1 Const General: cooperative Nutritional Appearance: average body habitus Orientation/consciousness: patient oriented x3 Neck Neck: Yes full ROM and Yes supple Resp Effort & Inspection: normal respiratory effort and able to speak in complete sentences Neuro General: patient oriented x3, gait normal and moves all extremities Cranial nerves: Yes Bilaterally intact EOM present, Yes Normal facial strength present, Yes Midline tongue present, Yes Symmetric palate elevation present, Yes Normal hearing present, Yes Ability to bilaterally rotate head present and Yes Ability to bilaterally elevate shoulders present Cognition (Neuro): normal cognition Gait exam (Neuro): Normal gait present Motor exam (neuro): 5/5 motor strength present throughout, Pronator motor function not present and no tremor noted Psych Appearance: grossly normal Mental Status: mental status grossly normal Speech and movement: Normal speech and movement present Affect: normal affect Attitude: cooperative Assessment & Plan Assessment & Plan (1) Hypersomnia: Code(s): G47.10 - Hypersomnia, unspecified Category: Medical Plan PSG and MSLT reviewed Continue Vit D supplementation Increase modafanil 100 mg qam and 2 nd dose in 3 hrs Medications: Changed From modafinil 100 mg PO DAILY 30 days 30 tabs 1RF To modafinil 1 tab qam and repeat in 3-4 hrs 100 mg PO DAILY 30 days 60 tabs 5RF Refilled cholecalciferol (vitamin D3) 25 mcg PO DAILY 30 days 30 caps 5RF Coding Level of Care Code Est Pt Level 4 (30485) Diagnoses Hypersomnia G47.10
[2023-09-16 14:13] VITALS: BP 118/68; PULSE 101; RESP 16; O2SAT 97; BMI 30.1
== END 2023-09-16 14:35 | disposition home or self-care (01) ==
PROVIDERS: PCP Family Medicine; Visit Provider Psychiatry & Neurology Neurology
DX: G47.10 Hypersomnia, unspecified (principal)
CPT/HCPCS: 99214

== ENCOUNTER → 2023-09-16 14:01 | Outpatient (BNVA) | payer BC, SELFPAY | PROVIDERS: PCP Family Medicine; Visit Provider Psychiatry & Neurology Neurology | DX: G47.19 Other hypersomnia (principal); R53.83 Other fatigue; E55.9 Vitamin D deficiency, unspecified ==

== ENCOUNTER 2023-11-23 08:28 | Outpatient (AMB) | payer BC, SELFPAY ==
--- NOTE | 2023-11-23 08:37 | MHC.PC.OV ---
Vital Signs 11/23/23 08:41 Height 5 ft 0.51 in Weight 149 lb 6 oz BMI 28.7 BP 104/68 Blood Pressure Location Lt brachial Position Sitting Respiration 14 Pulse 86 Pulse Source Pulse Oximeter Pulse Oximetry (%) 97 Oxygen Delivery Method Room Air Intake Visit Reasons: annual Intake Note: Physical Is last menstrual period known: Yes Last menstrual period: 10/26/23 Allergies No Known Allergies Allergy (Verified 11/23/23 08:39) Tobacco use date assessed: 09/27/21 HPI HPI Comments History of Present Illness Details This is a 28-year-old female with a past medical history of hypersomnia, fibromyalgia, depression and anemia presenting for her annual physical exam. Patient sees a therapist and psychiatrist regularly. States depression is controlled at this time on her current medications though she does struggle with some of the side effects. She has discussed it with her medication provider. No SI or HI. She sees sleep Neurology and is on Provigil. She continues to struggle with fatigue. 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 She is going to the gym regularly. She wants to be able to hike more. She endorses migraines pretty much daily for a couple years. Pain is behind her eyes, sometimes bilateral and can be unilateral. She endorses nausea, sensitivity to light and sound with headaches. She saw ENT. They recommended magnesium which she tried without improvement. She is on Zyrtec and Flonase. She's tried Tylenol extra strength, Advil, Sudafed, Excedrin. She says nothing helps. She denies family history of migraines. Denies syncope and seizures. She wears glasses. Up to date with eye exam. She would like a referral to the headache clinic. She has and MRI at age 17 for migraines. They went away and came back a few years ago. Sleeping is the only thing she can do to feel better. She had a tetanus vaccine 6 years ago when she had a finger injury. ROS: Constitutional: No unexplained weight loss, fever, chills or night sweats. Eyes: No vision changes, blurry vision, double vision, eye pain, eye redness, eye discharge. ENT: No hearing loss, sneezing, congestion, runny nose or sore throat. Respiratory: No shortness of breath, cough or sputum production. Cardiovascular: No chest pain, chest pressure or chest discomfort. No palpitations or pedal edema. Gastrointestinal: No anorexia, nausea, vomiting or diarrhea. No abdominal pain or blood in stool. Genitourinary: No dysuria, hematuria, urinary frequency. Neurologic: No syncope, numbness, tingling or weakness in extremities. Musculoskeletal: +chronic widespread pain-fibromyalgia diagnosis Hematologic/Lymphatics: No bleeding or bruising. No painful lymph nodes. Skin: +acne. Referred to [facility]. Endocrine: No cold or heat intolerance. No polyuria or polydipsia. Psychiatric: see HPI Physical exam: Constitutional: Alert, in no distress. Head: Normocephalic. Eyes: Pupils are equal, round and reactive to light. Extraocular muscles intact. Ear, Nose and Throat: Canals clear. TMs normal. Normal nasal mucosa. No nasal discharge. No oral lesions. Neck: Supple, Full range of motion. No lymphadenopathy. No palpable thyroid masses. Respiratory: Clear to auscultation. Cardiovascular: S1 S2 regular. No murmurs. Gastrointestinal: Abdomen soft, non-tender, non-distended. Normal bowel sounds. No palpable masses. Neurologic:?Alert and oriented x 3, no focal deficits observed, CN 2-12 intact, [id number] normal, sensation equal and symmetric, strength UE and LE 5/5 bilaterally, reflexes equal and symmetric.? Normal gait.? Patient able to heel walk, toe walk and walk heel-to-toe across the floor.? No pronator drift.? Negative Romberg. Skin: +facial acne Musculoskeletal: No gross deformities. Normal range of motion. Extremities: Warm and well perfused. No clubbing, cyanosis or edema. 3+ peripheral pulses bilaterally. Psychiatric: Normal mood and affect [facility] Medical History (Updated 11/23/23 @ 09:18 by EBRT Brewster) Migraines No known health problems Surgical History History of decompression of ulnar nerve Family History Father Cancer of thyroid Mother Cancer of thyroid Brother No problems noted. Brother No problems noted. Sister No problems noted. Sister No problems noted. 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 Diallo Gomes, Ariela Sun, Jeison Lemus and colleagues, with an educational jozef from [employer]. Physical exam (Primary Care) Vital Signs: Last Vital Signs Pulse 86 11/23/23 08:41 Resp 14 11/23/23 08:41 BP 104/68 11/23/23 08:41 Pulse Ox 97 11/23/23 08:41 Oxygen Delivery Method Room Air 11/23/23 08:41 BMI result Body Mass Index 28.7 Tobacco/Smoking Status: Tobacco use Status Tobacco use date assessed 09/27/21 11/23/23 08:38 Patient Tobacco Use Status Never used Tobacco 11/23/23 08:38 e-Cigarette/Vaping Use Never Used 11/23/23 08:38 Thrive Assessment: Date of Thrive Assessment Date Thrive assessed 04/22/22 11/23/23 08:38 Assessment and Plan Assessment & Plan (1) Routine physical examination: Code(s): Z00.00 - Encounter for general adult medical examination without abnormal findings Plan: Patient is seen today for a routine physical. As part of this visit we reviewed the following issues, which are considered and essential part of preventative health in this age group: - Breast Cancer screening - Annual Repairer Screen Crusher exam - Blood pressure screening annually - Cholesterol screening - Osteoporosis prevention including calcium/vitamin D intake, weight bearing exercise & smoking cessation - Nutritional and exercise counseling - Counseling of injury prevention including fire prevention, smoke alarms and seat belt usage - Prevention of and/or testing for infectious diseases - declined testing - Education about skin cancer - Recommendations about immunizations - Recommendation of an eye exam - Screening for substance abuse (2) Migraines: Code(s): G43.909 - Migraine, unspecified, not intractable, without status migrainosus Qualifiers: Migraine type: chronic migraine (15 or more days per month) without aura Status migrainosus presence: without status migrainosus Intractability: not intractable Qualified Code(s): G43.709 - Chronic migraine without aura, not intractable, without status migrainosus Plan: Patient says symptoms have been worsening. Given recurrence after remission for years we will order MRI of the brain to rule out intracranial pathology. Refer to headache Clinic. (3) Screening for cardiovascular condition: Code(s): Z13.6 - Encounter for screening for cardiovascular disorders Plan Follow up in 1 year for physical exam. Orders: Orders Lipid Panel Today G43.909 - Migraine, unspecified, not intractable, without status migrainosus, R53.83 - Other fatigue, Z00.00 - Encounter for general adult medical examination without abnormal findings, Z13.6 - Encounter for screening for cardiovascular disorders TSH reflex Free T4 Today E66.9 - Obesity, unspecified, G43.909 - Migraine, unspecified, not intractable, without status migrainosus, R53.83 - Other fatigue, Z00.00 - Encounter for general adult medical examination without abnormal findings, Z13.6 - Encounter for screening for cardiovascular disorders Complete Blood Count no Diff Today G43.909 - Migraine, unspecified, not intractable, without status migrainosus, R53.83 - Other fatigue, Z00.00 - Encounter for general adult medical examination without abnormal findings, Z13.6 - Encounter for screening for cardiovascular disorders Comprehensive Met. Panel Today G43.909 - Migraine, unspecified, not intractable, without status migrainosus, R53.83 - Other fatigue, Z00.00 - Encounter for general adult medical examination without abnormal findings, Z13.6 - Encounter for screening for cardiovascular disorders MR head/brain wo/w con Today G43.909 - Migraine, unspecified, not intractable, without status migrainosus, R51.9 - Headache, unspecified Referrals Neurology Referral G43.909 - Migraine, unspecified, not intractable, without status migrainosus Dermatology Referral L70.9 - Acne, unspecified PRODUCTION ROUSTABOUT Referral Z01.419 - Encounter for gynecological examination (general) (routine) without abnormal findings Coding Level of Care Code Est Pt Prev Care 18-39y(79113) Diagnoses Routine physical examination Z00.00 Chronic migraine without aura without status migrainosus, not intractable G43.709 Migraine type: chronic migraine (15 or more days per month) without aura Status migrainosus presence: without status migrainosus Intractability: not intractable Screening for cardiovascular condition Z13.6
[2023-11-23 08:41] VITALS: BP 104/68; PULSE 86; RESP 14; O2SAT 97; BMI 28.7
== END 2023-11-23 09:19 | disposition home or self-care (01) ==
PROVIDERS: PCP Family Medicine; Visit Provider Physician Assistant Medical
DX: Z00.00 Encounter for general adult medical examination without abnormal findings (principal); G43.709 Chronic migraine without aura, not intractable, without status migrainosus; Z13.6 Encounter for screening for cardiovascular disorders
CPT/HCPCS: 99395

== ENCOUNTER 2023-11-23 09:29 | Outpatient (REF) | payer BC, SELFPAY ==
[2023-11-23 11:10] LABS: Hematocrit 38.1 % (37.0-47.0); Hemoglobin 12.8 g/dl (12.0-16.0); Mean Corpuscular HGB Conc 33.6 g/dl (31.0-35.0); Mean Corpuscular Hemoglobin 28.5 pg (27.0-33.0); Mean Corpuscular Volume 84.9 fL (80.0-98.0); Mean Platelet Volume 9.5 fL (9.4-12.3); Platelet Count 389 X10*3/uL (160-400); Red Blood Count 4.49 X10*6/uL (4.20-5.50); Red Cell Distribution Width 11.8 % (11.0-16.0); White Blood Count 6.7 X10*3/uL (4.8-10.8)
[2023-11-23 11:34] LABS: Alanine Aminotransferase 10 U/L (0-31); Albumin Level 3.9 g/dL (3.5-5.0); Alkaline Phosphatase 54 U/L (39-117); Anion Gap 13 (12-20); Aspartate Amino Transferase 12 U/L (5-31); Bilirubin Total 0.4 mg/dL (0.0-1.0); Blood Urea Nitrogen 12 mg/dL (9-16); Calcium 9.6 mg/dL (8.4-10.2); Carbon Dioxide 24 mmol/L (22-29); Chloride 106 mmol/L (96-108); Cholesterol 245 mg/dL (<200); Estimated Glomerular Filt Rate > 60; Glucose Random 92 mg/dL (60-115); HDL Cholesterol 51 mg/dL (>40); LDL Cholesterol Calculated 142 mg/dL (<100); Sodium 139 mmol/L (135-145); Total Protein 6.9 g/dL (6.5-8.0); Triglycerides 264 mg/dL (<150)
== END 2023-11-23 09:30 | disposition home or self-care (01) ==
LOC: HO.WFDLDS 09:29
PROVIDERS: Visit Provider Physician Assistant Medical
DX: Z00.00 Encounter for general adult medical examination without abnormal findings (principal); Z13.6 Encounter for screening for cardiovascular disorders; G43.909 Migraine, unspecified, not intractable, without status migrainosus; R53.83 Other fatigue; E66.9 Obesity, unspecified
CPT/HCPCS: 36415; 80053; 80061; 84443; 85027

== ENCOUNTER 2024-01-02 17:06 | Outpatient (REF) | payer BC, SELFPAY ==
--- NOTE | ~2024-01-02 | MR_ITS ---
EXAMINATION: MR BRAIN WITHOUT AND WITH CONTRAST CLINICAL INFORMATION: 28-year-old with worsening daily headaches. Exclude tumor. COMPARISON: None available. TECHNIQUE: Multiplanar, multisequence MRI of the brain was obtained before and after the intravenous administration of 7.0 mL Gadavist. FINDINGS: BRAIN VOLUME: Within normal limits within the limitations of qualitative assessment. STRUCTURAL: No malformations. BRAIN AND MENINGES: DWI sequence demonstrates no restricted diffusion to suggest acute or subacute cerebral ischemia. The brain is normal in morphology and signal intensity. Susceptibility-weighted sequence demonstrates no abnormal signal loss to suggest hemorrhage, hemosiderin staining or abnormal mineralization. No extra-axial fluid collections, space-occupying process or mass effect are seen and there is no evidence for intracranial mass lesion or pathologic intracranial enhancement. VENTRICLES AND SUBARACHNOID SPACES: The ventricular system and subarachnoid spaces are within normal range; there is no hydrocephalus. ORBITAL STRUCTURES: The visualized orbital structures are grossly unremarkable within the limitations of the study. VASCULAR: Signal voids are noted in the visualized major intracranial vessels. OSSEOUS STRUCTURES, SINUSES/MASTOIDS, EXTRACRANIAL SOFT TISSUES: Osseous marrow signal intensity appears grossly within normal limits. There is a single mildly enlarged level II-A lymph node noted on the left. Minor mucosal thickening in the sphenoid sinus is noted. MR/MR head/brain wo/w con IMPRESSION: 1. Normal MRI of the brain without and with contrast. 2. Nonspecific mildly enlarged level IIA lymph node on the left. Follow-up as per clinical indications. Electronically signed by: Martin Ibanez MD 01/06/2024 04:49 PM EDT
[2024-01-02] MEDS: gadobutroL 7.5 ML VIAL IVPUSH (17:49)
== END 2024-01-02 17:07 | disposition home or self-care (01) ==
LOC: HO.MRI 17:06
PROVIDERS: PCP Family Medicine; Visit Provider Physician Assistant Medical
DX: G43.909 Migraine, unspecified, not intractable, without status migrainosus (principal)
CPT/HCPCS: 70553; A9585

== ENCOUNTER 2024-01-11 10:44 | Outpatient (REF) | payer BC, SELFPAY ==
[2024-01-12 18:19] LABS: Immunoglobulin A 75 mg/dL (47-310)
[2024-01-13 15:59] LABS: Transglutaminase Ab IgG <1.0 U/mL
[2024-01-14 22:39] LABS: Endomysial IgA Antibody Negative (Negative)
== END 2024-01-11 10:45 | disposition home or self-care (01) ==
LOC: HO.WFDLDS 10:44
PROVIDERS: Visit Provider Physician Assistant Medical
DX: R14.0 Abdominal distension (gaseous) (principal)
CPT/HCPCS: 36415; 82784; 86231; 86364

== ENCOUNTER 2024-02-15 15:05 | Outpatient (AMB) | payer BC, SELFPAY ==
--- NOTE | 2024-02-15 15:13 | MHC.PC.OV ---
Vital Signs 02/15/24 15:17 Height 5 ft 0.51 in Weight 154 lb 8 oz BMI 29.7 BP 108/70 Blood Pressure Location Rt brachial Position Sitting Pulse 71 Pulse Source Pulse Oximeter Pulse Oximetry (%) 98 Oxygen Delivery Method Room Air Intake Visit Reasons: follow up on mri Intake Note: MRI results Allergies No Known Allergies Allergy (Verified 02/15/24 15:16) Tobacco use date assessed: 09/27/21 HPI HPI Comments History of Present Illness Details This is a 28-year-old female with a past medical history of migraines, hypersomnia, fibromyalgia, depression and chronic fatigue presenting to follow up on results. She had an MRI on 01/02/2024 due to daily headaches. It showed a mildly enlarged lymph node on the left side of her neck and = inflammation in 1 of her sinuses. I asked her to schedule this appointment to check the lymph node. She has not had pain or swelling in her neck. She has chronic allergies. She saw the row boss hoeing recently, and she is allergic to cats. She has 3 of them. They will not do allergy injections because she takes propranolol which is a new medication prescribed by her headache specialist at [facility]. Since she started it she has not had headaches. She is doing very well. No fevers, chills, fatigue or night sweats. She takes Zyrtec 10 mg daily and Flonase which help. Influenza vaccine administered today. ROS: Constitutional: No fevers, chills or night sweats. Eyes: No vision changes, blurry vision, double vision, eye pain, eye redness, eye discharge. ENT: No ear pain, sore throat, sinus pain or purulent discharge. Neurologic: No headache, dizziness, syncope, unilateral weakness, ataxia, numbness or tingling in the extremities. Skin: No rash Physical exam: Constitutional: Alert, in no distress. Head: Normocephalic. Eyes: Pupils are equal, round and reactive to light. Extraocular muscles intact. Ear, Nose and Throat: Canals clear. TMs normal. Normal nasal mucosa. No nasal discharge. No oral lesions. Sinuses nontender. Neck: Supple, Full range of motion. No palpable lymphadenopathy or masses. Respiratory: Clear to auscultation. Cardiovascular: S1 S2 regular. No murmurs [facility] Medical History (Updated 02/15/24 @ 16:48 by BERT Brewster) Perennial allergic rhinitis Migraines No known health problems Surgical History History of decompression of ulnar nerve Family History Father Cancer of thyroid Mother Cancer of thyroid Brother No problems noted. Brother No problems noted. Sister No problems noted. Sister No problems noted. 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 1. Little interest or pleasure in doing things: nearly every day 2. Feeling down, depressed, or hopeless: nearly every day 3. Trouble falling or staying asleep, or sleeping too much: nearly every day 4. Feeling tired or having little energy: nearly every day 5. Poor appetite or overeating: not at all 6. Feeling bad about yourself - or that you are a failure or have let yourself or your family down: several days 7. Trouble concentrating on things, such as reading the newspaper or watching television: nearly every day 8. Moving or speaking so slowly that other people could have noticed. Or the opposite - being so fidgety or restless that you have been moving around a lot more than usual: several days 9. Thoughts that you would be better off or of hurting yourself in some way: not at all Total score: 17 Source: Developed by Drs. Diallo Gomes, Ariela Sun, Jeison Lemus and colleagues, with an educational jozef from [employer]. Thrive Questionnaire Date Thrive assessed: 04/22/22 I am a: Patient What is your living situation today?: I have a steady place to live Within the past 12 months, did the food you bought not last and you didn't have the money to get more?: Never true Within the past 12 months, did you worry whether your food would run out before you got money to buy more?: Never true Do you have trouble paying for medicines?: No Do you have trouble getting transportation to medical appointments?: No Do you have trouble paying your heating and electricity bill?: No Do you have trouble taking care of your child, family member or friend?: No Do you have trouble with day-to-day activities such as bathing, preparing meals, shopping, managing finances, etc.?: No Are you currently unemployed and looking for a job?: No Are you interested in more education?: No Please select the resources that you would like help with: None Currently or been in a relationship where the following occur: No concerns reported THRIVE Score: 0 AUDIT C Alcohol Use Questionnaire (AUDIT-C) 1. How often do you have a drink containing alcohol?: Monthly or less 2. How many drinks containing alcohol do you have on a typical day when you are drinking?: 1 or 2 3. How often do you have six or more drinks on one occasion?: Never Total Score: 1 GREGG-7 AMB Questionnaire GREGG-7 Date GREGG - 7 assessed: 01/14/22 Feeling nervous, anxious, or on edge: 1 = Several days Not being able to stop or control worryin = Several days Worrying too much about different things: 1 = Several days Trouble relaxin = Several days Being so restless that it is hard to sit still: 1 = Several days Becoming easily annoyed or irritable: 1 = Several days Feeling afraid as if something awful might happen: 1 = Several days Total GREGG-7 score (0-4 normal; 5-9 mild; 10-14 moderate; 15-21 severe): 7 Source: Developed by Drs. Diallo Gomes, Ariela Sun, Jeison Lemus and colleagues, with an educational jozef from [employer]. Physical exam (Primary Care) Vital Signs: Last Vital Signs Pulse 71 02/15/24 15:17 BP 108/70 02/15/24 15:17 Pulse Ox 98 02/15/24 15:17 Oxygen Delivery Method Room Air 02/15/24 15:17 BMI result Body Mass Index 29.7 Tobacco/Smoking Status: Tobacco use Status Tobacco use date assessed 09/27/21 02/15/24 15:15 Patient Tobacco Use Status Never used Tobacco 02/15/24 15:15 e-Cigarette/Vaping Use Never Used 02/15/24 15:15 PHQ-9: PHQ-9 Score PHQ-9: Total score 17 02/15/24 15:50 Thrive Assessment: Date of Thrive Assessment Date Thrive assessed 04/22/22 02/15/24 15:15 Currently or been in a relationship where the following occur: No concerns reported Office Procedures Flu Questionnaire Does the patient have a severe egg allergy?: No Does the patient have severe life threatening allergies?: No Does the patient have a fever or illness today?: No Has the patient ever had Guillain-[place] Syndrome?: No Has the patient ever had any past reaction to a flu shot?: No Immunizations Fluarix Triv 5470-9338 (PF) 45 mcg (15 mcg x 3)/0.5 mL IM syringe Performing Provider: BERT Brewster Performing Location: [facility] [place] Family Medicine Administered by: Dory Monroe CMA on 02/15/24 16:32 Dose Route Admin Location Dispensed Lot Number Expiration Date [facility] Carbide Operator 0.5 mL IM Right Deltoid 0.5 mL [id number] 10/10/24 06375-349-42 [employer] VIS Given Date VIS Provided VIS Publication Date 02/15/24 Single Vaccine 20 Eligibility Eligibility Date Funding Source Not [facility] Eligible 02/15/24 Private Coding Level of Care Code Est Pt Level 3 (80088) Complex EM visit Add On G2211 Diagnoses Chronic migraine without aura without status migrainosus, not intractable G43.709 Migraine type: chronic migraine (15 or more days per month) without aura Status migrainosus presence: without status migrainosus Intractability: not intractable Perennial allergic rhinitis J30.89 Assessment & Plan Assessment & Plan (1) Migraines: Code(s): G43.909 - Migraine, unspecified, not intractable, without status migrainosus Category: Medical Qualifiers: Migraine type: chronic migraine (15 or more days per month) without aura Status migrainosus presence: without status migrainosus Intractability: not intractable Qualified Code(s): G43.709 - Chronic migraine without aura, not intractable, without status migrainosus (2) Perennial allergic rhinitis: Code(s): J30.89 - Other allergic rhinitis Category: Medical Plan No palpable lymph nodes or masses on neck exam. She may have had an enlarged lymph node related to her chronic congestion and allergies. She has seen the row boss hoeing. She is going to continue Zyrtec and Flonase. Headaches resolved on propranolol. Seen by headache specialist. Patient was instructed to call if she develops pain or swelling or palpable lump in her neck. Orders: Orders Influenza [id number] Immunization Today Z23 - Encounter for immunization
[2024-02-15 15:17] VITALS: BP 108/70; PULSE 71; O2SAT 98; BMI 29.7
== END 2024-02-15 16:49 | disposition home or self-care (01) ==
LOC: HO.HMCFM 15:06
PROVIDERS: PCP Family Medicine; Visit Provider Physician Assistant Medical
DX: G43.709 Chronic migraine without aura, not intractable, without status migrainosus (principal); J30.89 Other allergic rhinitis; Z23 Encounter for immunization

== ENCOUNTER → 2024-02-15 15:05 | Outpatient (BNVA) | payer BC, SELFPAY | PROVIDERS: PCP Family Medicine; Visit Provider Physician Assistant Medical | DX: G43.709 Chronic migraine without aura, not intractable, without status migrainosus (principal); J30.89 Other allergic rhinitis; Z23 Encounter for immunization | CPT/HCPCS: 90471; 90656; 96127 ==

== ENCOUNTER → 2024-03-15 14:42 | Outpatient (BNVA) | payer BC, SELFPAY | PROVIDERS: PCP Family Medicine; Visit Provider Advanced Practice Midwife ==

== ENCOUNTER 2024-12-05 08:38 | Outpatient (AMB) | payer BC, SELFPAY ==
--- NOTE | 2024-12-05 08:40 | MHC.PC.OV ---
Vital Signs 12/05/24 08:49 Height 5 ft 0.51 in Weight 149 lb 2 oz BMI 28.6 BP 104/70 Blood Pressure Location Lt brachial Position Sitting Pulse 82 Pulse Source Pulse Oximeter Temp 98.4 F Temp Source Temporal Artery Scan Pulse Oximetry (%) 98 Oxygen Delivery Method Room Air Intake Visit Reasons: annual Intake Note: Madeline presents in the office today for her annual physical. Allergies No Known Allergies Allergy (Verified 12/05/24 08:45) Medication List - Last Reconciled 12/05/24 by BERT Brewster cetirizine (Zyrtec) 10 mg PO DAILY PRN 90 days doxycycline hyclate 20 mg PO DAILY drospirenone-ethinyl estradiol 3-0.03 mg (Britney) 1 tab PO DAILY 84 days duloxetine 80 mg PO DAILY omeprazole 20 mg PO DAILY propranolol 90mg QD orally; spironolactone 50 mg PO BID Tobacco use date assessed: 12/05/24 Dental Screening Dental Screen Date: 12/05/24 Did you have a dental visit in the last 12 months?: Yes Did you have a dental problem in the last 6 months where you did not have access to dental care?: No Was dental information given to patient?: Patient has dentist HPI HPI Comments History of Present Illness Details This is a 28-year-old female with a past medical history of migraines, hypersomnia, fibromyalgia, depression and chronic fatigue presenting for a physical exam. Tdap: administered Receives annual influenza vaccine. 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 Eyes and dental: up to date Endorses a pain on the top of her right shoulder for the past 6 months. No history of injury. She says it is mild, and it does come and go but she wanted to mention it. Notices her hair feels thinner than it used to be. No rashes or scalp irritation. ROS: Constitutional: No unexplained weight loss, fever, chills, fatigue or night sweats. Eyes: No vision changes, blurry vision, double vision, eye pain, eye redness, eye discharge. ENT: No hearing loss, sneezing, congestion, runny nose or sore throat. Respiratory: No shortness of breath, cough or sputum production. Cardiovascular: No chest pain, chest pressure or chest discomfort. No palpitations or pedal edema. Gastrointestinal: No anorexia, nausea, vomiting or diarrhea. No abdominal pain or blood in stool. Genitourinary: No dysuria, hematuria, urinary frequency. Neurologic: No headache, dizziness, syncope, unilateral weakness, ataxia, numbness or tingling in the extremities. Musculoskeletal: See HPI Hematologic/Lymphatics: No bleeding or bruising. No painful lymph nodes. Skin: No rash. Sees Dermatology. Endocrine: No cold or heat intolerance. No polyuria or polydipsia. Psychiatric: Followed by therapist and psychiatrist. Physical exam: Constitutional: Alert, in no distress. Head: Normocephalic. Eyes: Pupils are equal, round and reactive to light. Extraocular muscles intact. Ear, Nose and Throat: Canals clear. TMs normal. Normal nasal mucosa. No nasal discharge. No oral lesions. Neck: Supple, Full range of motion. No lymphadenopathy. No palpable thyroid masses. Respiratory: Clear to auscultation. Cardiovascular: S1 S2 regular. No murmurs Gastrointestinal: Abdomen soft, non-tender, non-distended. Normal bowel sounds. No palpable masses. Genitourinary: No costovertebral angle tenderness. Neurologic: No focal neurological deficits. Symmetric patellar reflexes. Moves all extremities spontaneously. Sensation intact bilaterally. Skin: No rashes Musculoskeletal: No gross deformities. Normal range of motion. Shoulders with no palpable deformities, swelling or crepitus. Full range of motion of the shoulders. Tender on the superior aspect of the right AC joint. Extremities: Warm and well perfused. No clubbing, cyanosis or edema. 3+ peripheral pulses bilaterally. Psychiatric: Normal mood and affect [facility] Medical History (Updated 12/05/24 @ 09:04 by BERT Brewster) Right shoulder pain Routine physical examination Perennial allergic rhinitis Migraines No known health problems Surgical History History of decompression of ulnar nerve Family History Father Cancer of thyroid Mother Cancer of thyroid Brother No problems noted. Brother No problems noted. Sister No problems noted. Sister No problems noted. 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 1. Little interest or pleasure in doing things: more than half the days 2. Feeling down, depressed, or hopeless: several days 3. Trouble falling or staying asleep, or sleeping too much: more than half the days 4. Feeling tired or having little energy: nearly every day 5. Poor appetite or overeating: not at all 6. Feeling bad about yourself - or that you are a failure or have let yourself or your family down: not at all 7. Trouble concentrating on things, such as reading the newspaper or watching television: more than half the days 8. Moving or speaking so slowly that other people could have noticed. Or the opposite - being so fidgety or restless that you have been moving around a lot more than usual: several days 9. Thoughts that you would be better off or of hurting yourself in some way: not at all Total score: 11 Depression Screening Interpretation: Positive (sees therapist weekly and psychiatrist) Depression Screening Follow-up: Existing condition Depression Screening Done: Yes 42605 - PHQ-9 Billing: Yes Source: Developed by Drs. Diallo Gomes, Ariela Sun, Jeison Lemus and colleagues, with an educational jozef from [employer]. Thrive Questionnaire Date Thrive assessed: 12/05/24 I am a: Patient What is your living situation today?: I have a steady place to live Within the past 12 months, did the food you bought not last and you didn't have the money to get more?: Never true Within the past 12 months, did you worry whether your food would run out before you got money to buy more?: Never true Do you have trouble paying for medicines?: No Do you have trouble getting transportation to medical appointments?: No Do you have trouble paying your heating and electricity bill?: No Do you have trouble taking care of your child, family member or friend?: No Do you have trouble with day-to-day activities such as bathing, preparing meals, shopping, managing finances, etc.?: No Are you currently unemployed and looking for a job?: No Are you interested in more education?: No Please select the resources that you would like help with: None Currently or been in a relationship where the following occur: No concerns reported THRIVE Score: 0 AUDIT C Alcohol Use Questionnaire (AUDIT-C) 1. How often do you have a drink containing alcohol?: Monthly or less 2. How many drinks containing alcohol do you have on a typical day when you are drinking?: 1 or 2 3. How often do you have six or more drinks on one occasion?: Never Total Score: 1 GREGG-7 AMB Questionnaire GREGG-7 Date GREGG - 7 assessed: 12/05/24 Feeling nervous, anxious, or on edge: 2 = More than half the days Not being able to stop or control worryin = Several days Worrying too much about different things: 1 = Several days Trouble relaxin = More than half the days Being so restless that it is hard to sit still: 1 = Several days Becoming easily annoyed or irritable: 2 = More than half the days Feeling afraid as if something awful might happen: 1 = Several days Total GREGG-7 score (0-4 normal; 5-9 mild; 10-14 moderate; 15-21 severe): 10 Source: Developed by Drs. Diallo Gomes, Ariela Sun, Jeison Lemus and colleagues, with an educational jozef from [employer]. GREGG-7 Assessment Billing GREGG-7 Assessment Tool: GREGG-7 Assessment 15271 Physical exam (Primary Care) Vital Signs: Last Vital Signs Temp 98.4 F 12/05/24 08:49 Pulse 82 12/05/24 08:49 BP 104/70 12/05/24 08:49 Pulse Ox 98 12/05/24 08:49 Oxygen Delivery Method Room Air 12/05/24 08:49 BMI result Body Mass Index 28.6 Tobacco/Smoking Status: Tobacco use Status Tobacco use date assessed 12/05/24 12/05/24 08:52 Patient Tobacco Use Status Never used Tobacco 12/05/24 08:49 e-Cigarette/Vaping Use Never Used 12/05/24 08:49 PHQ-9: PHQ-9 Score PHQ-9: Total score 11 12/05/24 08:59 Depression Screening Interpretation: Positive (sees therapist weekly and psychiatrist) Depression Screening Follow-up: Existing condition Thrive Assessment: Date of Thrive Assessment Date Thrive assessed 12/05/24 12/05/24 08:42 Currently or been in a relationship where the following occur: No concerns reported Coding Level of Care Code Est Pt Level 3 (51911) Est Pt Prev Care 18-39y(35789) Diagnoses Routine physical examination Z00.00 Right shoulder pain M25.511 Thinning hair L65.9 Additional Codes GREGG-7 Assessment Billing - GREGG-7 Assessment Tool: GREGG-7 Assessment 19514 ([id number]) PHQ-9 - 70641 - PHQ-9 Billing: Yes ([id number]) Assessment & Plan Assessment & Plan (1) Routine physical examination: Code(s): Z00.00 - Encounter for general adult medical examination without abnormal findings Category: Medical Plan: Patient is seen today for a routine physical. As part of this visit we reviewed the following issues, which are considered and essential part of preventative health in this age group: - Breast Cancer screening - Annual Pastry Supervisor exam - Blood pressure screening annually - Cholesterol screening - Osteoporosis prevention including calcium/vitamin D intake, weight bearing exercise & smoking cessation. Patient takes a multivitamin. - Nutritional and exercise counseling - Counseling of injury prevention including fire prevention, smoke alarms and seat belt usage - Screening for depression - Education about skin cancer - Recommendations about immunizations - Recommendation of an eye exam - Screening for substance abuse (2) Right shoulder pain: Code(s): M25.511 - Pain in right shoulder Category: Medical Plan: Ordered x-ray. (3) Thinning hair: Code(s): L65.9 - Nonscarring hair loss, unspecified Plan: Check labs. Plan Schedule physical in 1 year. Orders: Orders Basic Metabolic Panel Today Z00.00 - Encounter for general adult medical examination without abnormal findings TSH reflex Free T4 Today R53.83 - Other fatigue, Z00.00 - Encounter for general adult medical examination without abnormal findings TDaP Immunization Today Z23 - Encounter for immunization Liver Panel Today L65.9 - Nonscarring hair loss, unspecified Lipid Panel Today E78.5 - Hyperlipidemia, unspecified, Z00.00 - Encounter for general adult medical examination without abnormal findings Complete Blood Count no Diff Today Z00.00 - Encounter for general adult medical examination without abnormal findings XR shoulder RT min 2V Today L65.9 - Nonscarring hair loss, unspecified, M25.511 - Pain in right shoulder Vitamin B12 Today L65.9 - Nonscarring hair loss, unspecified, Z91.89 - Other specified personal risk factors, not elsewhere classified Vitamin D 25-OH (D2 and D3) Today L65.9 - Nonscarring hair loss, unspecified, M85.80 - Other specified disorders of bone density and structure, unspecified site Referrals EXPLOSION WELDER Referral Z01.419 - Encounter for gynecological examination (general) (routine) without abnormal findings Medications: New Boostrix Tdap (diphth,pertus(acell),tetanus) 0.5 mL IM ONCE 0.5 mL 0RF NS Z23 - Encounter for immunization
[2024-12-05 08:49] VITALS: BP 104/70; PULSE 82; TEMP 36.9; O2SAT 98; BMI 28.6
--- OUTSIDE RECORDS SUMMARY | 2024-12-05 09:06 | XMS_ITS | Encounter Summary ---
Author Organization [facility] Address [address] [place] [address] Phone Care Team Providers Care Disability Liaison Officer Name Role Phone Provider, Marcello ASHLEY Primary Care Provider [phone] Encounter Details Date Type Department Care Team (Late st Contact Info) Description 11/10/2011 [place] [facility] [place] [address] [place] [address] Family Medicine, Physician [address], [place] [phone] Social History Tobacco Use Types Packs/Day Years Used Date Smoking Tobacco: Never Assessed Comments Unknown Sex and Gender Information Value Date Recorded Sex Assigned at Not on file Legal Sex Female 5:03 PM EDT Gender Identity Not on file Sexual Orientation Not on file documented as of this encounter Plan of Treatment Not on file documented as of this encounter Visit Diagnoses Not on filedocumented in this encounter Care Teams Disability Liaison Officer Relationship Specialty Start Date End Date Provider, MD Marcello [address] [place] [address] PCP - General Pediatrics 11/19/20 07/20/22 documented as of this encounter
== END 2024-12-05 09:18 | disposition home or self-care (01) ==
LOC: HO.HMCFM 08:39
PROVIDERS: PCP Family Medicine; Visit Provider Physician Assistant Medical
DX: Z00.00 Encounter for general adult medical examination without abnormal findings (principal); M25.511 Pain in right shoulder; L65.9 Nonscarring hair loss, unspecified; Z23 Encounter for immunization

== ENCOUNTER → 2024-12-05 08:38 | Outpatient (BNVA) | payer BC, SELFPAY | PROVIDERS: PCP Family Medicine; Visit Provider Physician Assistant Medical | DX: Z00.00 Encounter for general adult medical examination without abnormal findings (principal); Z23 Encounter for immunization; M25.511 Pain in right shoulder; L65.9 Nonscarring hair loss, unspecified; Z13.31 Encounter for screening for depression; Z13.39 Encounter for screening examination for other mental health and behavioral disorders | CPT/HCPCS: 90471; 90715; 96127 ==

== ENCOUNTER 2024-12-20 08:05 | Outpatient (REF) | payer BC, SELFPAY ==
--- OUTSIDE RECORDS SUMMARY | 2024-12-20 08:43 | XMS_ITS | Encounter Summary ---
Author Organization [facility] Address [address] [place] [address] Phone Care Team Providers Care Trouble Clerk Name Role Phone Provider, Marcello ASHLEY Primary Care Provider [phone] Encounter Details Date Type Department Care Team (Late st Contact Info) Description 04/17/2011 Documentation [facility] [place] [address] [place] [address] Family Medicine, Physician [address] [place], [place] [phone] Social History Tobacco Use Types Packs/Day Years [...] on filedocumented in this encounter Care Teams Trouble Clerk Relationship Specialty Start Date End Date Provider, MD Marcello [address] [place] [address] PCP - General Pediatrics 11/19/20 07/20/22 documented as of this encounter
--- OUTSIDE RECORDS SUMMARY | 2024-12-20 08:43 | XMS_ITS | Encounter Summary ---
Author Organization [facility] Address [address] [place] [address] Phone Care Team Providers Care Rubber Printing Machine Operator Name Role Phone Provider, Marcello ASHLEY Primary Care Provider [phone] Encounter Details Date Type Department Care Team (Late st Contact Info) Description 05/30/2011 [place] [facility] [place] [address] [place] [address] Family Medicine, Physician [address], [place] [id number] Social History Tobacco Use Types Packs/Day Years [...] on filedocumented in this encounter Care Teams Rubber Printing Machine Operator Relationship Specialty Start Date End Date Provider, MD Marcello [address] [place] [address] PCP - General Pediatrics 11/19/20 07/20/22 documented as of this encounter
--- OUTSIDE RECORDS SUMMARY | 2024-12-20 08:43 | XMS_ITS | Encounter Summary ---
Author Organization [facility] Address [address] [place] [address] Phone Care Team Providers Care Assistant Grocery Name Role Phone Provider, Marcello ASHLEY Primary Care Provider [phone] Encounter Details Date Type Department Care Team (Late st Contact Info) Description 11/10/2011 [place] [facility] [place] [address] [place] [address] Family Medicine, Physician [address], [place] [phone] Social History Tobacco Use Types Packs/Day Years [...] on filedocumented in this encounter Care Teams Assistant Grocery Relationship Specialty Start Date End Date Provider, MD Marcello [address] [place] [address] PCP - General Pediatrics 11/19/20 07/20/22 documented as of this encounter
--- OUTSIDE RECORDS SUMMARY | 2024-12-20 08:44 | XMS_ITS | Encounter Summary ---
Author Organization [facility] Address [address] [place] [address] Phone Care Team Providers Care Assistant District Attorney Name Role Phone Provider, Marcello ASHLEY Primary Care Provider [phone] Encounter Details Date Type Department Care Team (Late st Contact Info) Description 05/08/2010 [place] [facility] [place] [address] [place] [address] Family Medicine, Physician [address], [place] [phone] Social History Tobacco Use Types Packs/Day Years [...] filedocumented in this encounter Care Teams Assistant District Attorney Relationship Specialty Start Date End Date Provider, MD Marcello [address] [place] [address] PCP - General Pediatrics 11/19/20 07/20/22 documented as of this encounter
--- OUTSIDE RECORDS SUMMARY | 2024-12-20 08:44 | XMS_ITS | Encounter Summary ---
Author Organization [facility] Address [address] [place] [address] Phone Care Team Providers Care Transporter Radiology Name Role Phone Provider, Marcello ASHLEY Primary Care Provider [phone] Encounter Details Date Type Department Care Team (Late st Contact Info) Description 08/24/2012 Documentation [facility] [place] [address] [place] [address] Family Medicine, Physician [address] [place] [phone] Social History Tobacco Use Types Packs/Day Years [...] on filedocumented in this encounter Care Teams Transporter Radiology Relationship Specialty Start Date End Date Provider, MD Marcello [address] [place] [address] PCP - General Pediatrics 11/19/20 07/20/22 documented as of this encounter
--- OUTSIDE RECORDS SUMMARY | 2024-12-20 08:44 | XMS_ITS | Encounter Summary ---
Author Organization [facility] Address [address] [place] [address] Phone Care Team Providers Care Chief Engineer Production Name Role Phone Provider, Marcello ASHLEY Primary Care Provider [phone] Encounter Details Date Type Department Care Team (Late st Contact Info) Description 05/01/2010 Documentation [facility] [place] [address] [place] [address] Family Medicine, Physician [address], [place] [phone] Social History Tobacco Use Types Packs/Day Years [...] on filedocumented in this encounter Care Teams Chief Engineer Production Relationship Specialty Start Date End Date Provider, MD Marcello [address] [place] [address] PCP - General Pediatrics 11/19/20 07/20/22 documented as of this encounter
--- OUTSIDE RECORDS SUMMARY | 2024-12-20 08:44 | XMS_ITS | Encounter Summary ---
Author Organization [facility] Address [address] [place] [address] Phone Care Team Providers Care Block Captain Name Role Phone Provider, Marcello ASHLEY Primary Care Provider [phone] Encounter Details Date Type Department Care Team (Late st Contact Info) Description 03/20/2011 Documentation [facility] [place] [address] [place] [address] Family Medicine, Physician [address] [phone] Social History Tobacco Use Types Packs/Day Years [...] on filedocumented in this encounter Care Teams Block Captain Relationship Specialty Start Date End Date Provider, MD Marcello [address] [place] [address] PCP - General Pediatrics 11/19/20 07/20/22 documented as of this encounter
--- OUTSIDE RECORDS SUMMARY | 2024-12-20 08:44 | XMS_ITS | Encounter Summary ---
Author Organization [facility] Address [address] [place] [address] Phone Care Team Providers Care Monomer Recovery Operator Name Role Phone Provider, Marcello ASHLEY Primary Care Provider [phone] Reason for Visit * Reason Comments Med Refill Encounter Details Date Type Department Care Team ([facility] st Contact Info) Description 01/23/2018 Refill [facility] - [address] [address] Gina Oropeza MD [address] [place] [address] Severe single current episode of major depressive disorder, without psychotic features Social History Tobacco Use Types Packs/Day Years Used Date Smoking Tobacco: Never Smokeless Tobacco: Never Comments:Never smoker Alcohol Use Standard Drinks/Week Comments No 0 (1 standard drink = 0.6 oz pur e alcohol) Comments No Sex and Gender Information Value Date Recorded Sex Assigned at Not on file Legal Sex Female 5:03 PM EDT Gender Identity Not on file Sexual Orientation Not on file documented as of this encounter Miscellaneous Notes * Telephone Encounter - Anthony Gibbons LPN - 01/25/2018 10:35 AM EDT Med refill refused. See note from 01/22/18. documented in this encounter Plan of Treatment Not on file documented as of this encounter Visit Diagnoses Diagnosis Severe single current episode of major depressive disorder, without psychotic features documented in this encounter Care Teams Monomer Recovery Operator Relationship Specialty Start Date End Date Provider, MD Marcello [address] [place] [address] PCP - General Pediatrics 8/9/21 4/9/23 documented as of this encounter
--- OUTSIDE RECORDS SUMMARY | 2024-12-20 08:44 | XMS_ITS | Encounter Summary ---
Author Organization [facility] Address [address] [place] [address] Phone Care Team Providers Care Store Sales Leader Name Role Phone Provider, Marcello ASHLEY Primary Care Provider [phone] Encounter Details Date Type Department Care Team (Late st Contact Info) Description 08/23/[address] [facility] [place] Family [place] [address] [place] [address] Family Medicine, Physician [address], [place] [phone] Social History Tobacco Use Types Packs/Day Years [...] on filedocumented in this encounter Care Teams Store Sales Leader Relationship Specialty Start Date End Date Provider, MD Marcello [address] [place] [address] PCP - General Pediatrics 11/19/20 07/20/22 documented as of this encounter
--- OUTSIDE RECORDS SUMMARY | 2024-12-20 08:44 | XMS_ITS | Encounter Summary ---
Author Organization [facility] Address [address] [place] [address] Phone Care Team Providers Care Air Twister Winder Name Role Phone Provider, Marcello ASHLEY Primary Care Provider [phone] Encounter Details Date Type Department Care Team (Late st Contact Info) Description 01/03/2011 Documentation [facility] [place] [address] [place] [address] Family Medicine, Physician [address] [phone] Social History Tobacco Use Types Packs/Day Years [...] on filedocumented in this encounter Care Teams Air Twister Winder Relationship Specialty Start Date End Date Provider, MD Marcello [address] [place] [address] PCP - General Pediatrics 11/19/20 07/20/22 documented as of this encounter
--- OUTSIDE RECORDS SUMMARY | 2024-12-20 08:44 | XMS_ITS | Encounter Summary ---
Author Organization [facility] Address [address] [place] [address] Phone Care Team Providers Care Bag Bailer Name Role Phone Provider, Marcello ASHLEY Primary Care Provider [phone] Encounter Details Date Type Department Care Team (Late st Contact Info) Description 06/14/[address] [facility] [place] [address] [place] [address] Family Medicine, Physician [address], [place] [phone] Social History Tobacco Use Types Packs/Day Years [...] on filedocumented in this encounter Care Teams Bag Bailer Relationship Specialty Start Date End Date Provider, MD Marcello [address] [place] [address] PCP - General Pediatrics 11/19/20 07/20/22 documented as of this encounter
--- OUTSIDE RECORDS SUMMARY | 2024-12-20 08:44 | XMS_ITS | Clinical Summary ---
Author Organization [facility] Address [address] [place] [id number] Phone Care Team Providers Care Teacher Adventure Education Name Role Phone Unavailable Primary Care Provider Unavailabl e Allergies No known active allergies Medications tretinoin 0.05 % cream APPLY TOPICALLY QHS PRN 0 8 Active FLUoxetine (PROZAC) 10 MG capsuleIndicati ons:Severe single current episode of major depressive disorder, without psychotic features Take 1 capsule (10 mg total) by mouth daily. 40 capsule 8 Active norgestimate-et hinyl estradiol (SPRINTEC 28) 0.25-35 MG-MCG per tabletIndicatio ns:Acne vulgaris Take 1 tablet by mouth daily. 28 tablet 11 8 Active Active Problems Problem Noted Date Diagnosed Date Vitamin D deficiency 12/22/2017 Severe single current episode of major depressiv e disorder 12/22/2017 Overview (03/09/2018): Seen 12/2017 - severe depression - PHQ-9 score 20 with intermittent SI, referred to [facility] and started on Prozac 10 mg with follow scheduled the next week to evaluate potential side effects and adjust dose up to 20mg if appropriate. Patient did not return for follow up in one week. Continued on Prozac 10 mg - without change in symptoms PHQ-9 - the score was 20 again with SI and reports of visiting forums to explore ways to commit suicide. (01/2018) I elected not to continue Prozac at that time. Patient met with [facility] and was cleared by them. Telepsych eval 02/22/2018 - Major Depressive Episode. Post Traumatic Stress Disorder, Anxiety - Recommendation was to restart Prozac at 20 mg daily titrate up to max dose of 40-60 mg daily. Continue behavioral therapy. Assessment & Plan (01/30/2018 1:00 PM EDT): At follow up today patient reports that she does not have intent to commit suicide and will occasionally visit forum every few months. I expressed to the patient that I had discomfort with continuing SSRI without formal evaluation by a psychiatrist. I have referred her to the [facility] Telepsych program. Assessment & Plan (01/22/2018 12:55 PM EDT): Will NOT refill Prozac at this time. Patient met with Stephanie from [facility] who facilitated contact with [facility]. Patient to go to work today and follow up with [facility] in the AM. She has a visit with Anne ([facility]) next week. I recommend that she follows up with me within 1-2 weeks, I would like to refer her to telepsych for evaluation. Anxiety 04/20/2017 Overview (12/22/2017): Refereed to counseling here Apr 2017. Not actively participating in counseling. Assessment & Plan (12/22/2017 10:00 AM EDT): Advised that she make a follow up appointment with Anne. Assessment & Plan (06/23/2017 10:56 AM EDT): Make another appt with Mulu Kelly in [place]. Migraine without aura and wi thout status migrainosus, not intractable 03/03/2017 Assessment & Plan (03/03/2017 2:10 PM EST): Now is having only one migraine type headache weekly using an integrative approach with meds, Herbs, and self hypnosis. Is Much better! Practiced today with relaxation breathing and suggestions for calm comfort, changing color of headache from red to blue, changing shape harnessing her visual spatial skills during the session. Recorded on her I phone Tremors of nervous system 01/09/2017 Assessment & Plan (06/23/2017 10:56 AM EDT): Tremor the same or less, no fasiculations of tongue now Dysarthria 01/09/2017 Assessment & Plan (06/23/2017 10:57 AM EDT): Word finding issues seem most related to absent mindedness she says Assessment & Plan (03/03/2017 2:08 PM EST): Still some trouble with word finding, is concerning Chronic daily headache 01/09/2017 Overview (12/22/2017): Take Excedrin which occasionally helps. Drinks a lot of water. By history seems like tension type headache. Has been to see Dr. Huang for headache and hypnotherapy. Assessment & Plan (06/24/2017 8:34 AM EDT): Counselled: Did third recording beginning with tension/release of fists and feet (was fidgety with fingers), then imagining self drawing, or with friend/favorite place, imagining color turning from red to blue (discomfort to comfort) in concert with her very accurate drawing of dog character, with post hyp suggestions around pickard register at [employer] and at school Directions: Practice with your new recording. Notice whether the headaches last a shorter time, are less frequent, or less intense. Practice with that Star Pose three times a day for 30 seconds. Get good rest, fresh air, exercise, enjoy the customers who are polite! See the referral to PT. Assessment & Plan (01/09/2017 1:18 PM EDT): May well be idiopathic, but with onset of tremor, strong hx of thyroid disease (both parents) must worry about thyroid dysfunction, also with tremor and fasiculations concern re cerebellar lesion, despite otherwise normal neuro exam, am concerned re. Mild dysarthia as well. See labs, MRI. Did explain reasons for mind body therapies, taught her diapraghmatic breathing decided to keep eyes open, did yes set around focusing, using metaphor of long distance cycling, being able to turn off pain signals, for ratification, used finger warming, suggestion to change the fog over forehead (see picture she meghna of headache), clearing it, and changing color of red mask over eyes, reminded to practice, etc. Suggest migraine diet and migrelief. Chronic daily headache May well be idiopathic, but with onset of tremor, strong hx of thyroid disease (both parents) must worry about thyroid dysfunction, also with tremor and fasiculations concern re cerebellar lesion, despite otherwise normal neuro exam, am concerned re. Mild dysarthia as well. 1. Chronic daily headache MRI brain without contrast, Lyme Disease Ab w/ Reflex 2. Tremors of nervous system TSH, T4, free, Anti-thyroglobulin antibody, Thyroid peroxidase antibody, T4 3. Fasciculation of tongue 4. Dysarthria Ceruloplasmin Acne 03/31/2016 Overview (11/12/2017): Followed by derm. Treated with doxycycline, clindamycin pledgets and tretinoin. They have discussed OCPs. Assessment & Plan (01/21/2018 10:04 AM EDT): Will start Sprintec daily Stop doxy Use clinda daily if you wishes until done then stop Use BP wash in shower Follow up as needed with Dr Oropeza or derm clinic in 2-3 months if no better Assessment & Plan (12/22/2017 2:33 PM EDT): Went to a training lead in [place]. Does not have a follow up. I recommend that she makes an appointment to see Phylicia who comes here for derm consults. Resolved Problems Problem Noted Date Diagnosed Date Resolved Date Fasciculation of tongue 01/09/201706/11 Assessment & Plan (03/03/2017 2:07 PM EST): Can have with tremors but a bit unusual Assessment & Plan (01/09/2017 2:16 PM EDT): Or tremor of tongue. Chronic tension-type headach e, not intractable 03/31/2016 02/27/2017 Irritable bowel syndrome 03/09/2015 Immunizations Immunization Administration Dates Next Due DTaP 5 05/27/2001, 9,1997,08/17,1997 HPV, Quadrivalent 04/25/2010,12/18/2009,09/29/19 10 Hep A, ped/adol 05/16/2013,10/07/2010 Hep B, ped/adol 1997,1997,1997 Hib (PRP-T) 07/23/1998, 8,1997,06/01 IPV 05/27/2001, 0,1997,06/01 Influenza Split 12/18/2009 Influenza, injectable, quadrivalent 01/30/2016,0 05/16/2015,05/16/2014 Influenza, injectable, quadr ivalent, preservative free 01/14/2017,05/16/2013 Influenza, intranasal, trivalent 01/13/2012 MMR 05/27/2001,04/23/1998 Meningococcal Conj (Menactra) MCV4P 05/16/2015,0 09/28/2009 OPV 1997 Tdap 09/28/2009 Varicella 06/09/2007,04/23/1998 Family History Medical History Relation Name Comments Multiple sclerosis Father Thyroid cancer Father Hyperlipidemia Mother Roxane Thyroid cancer Mother Roxane Relation Name Status Comments Brother 1 Alive Brother: Alive and well, hemophilia, Alive and well Brother 2 Alive Brother: Alive and well, hemophilia, Alive and well Father Alive Father: Multipl e sclerosis, Cancer, thyroid Maternal Grandfather Alive Maternal Grandmother Alive Mother Roxane Alive Mother: Thyroid disease, Elevated cholesterol Other No family histo ry of Deafness, No family history of Diabetes mellitus, No family history of Asthma, Family history of Hyperlipidemia, No family history of *Heart Disease, Family history of Obesity, No family history of Migraines, No family history of Strabismus, Family history of Cancer - melanoma, thyroid, No family history of Seizure disorder, No family history of Developmental dislocation of hip, No family history of ADD/ADHD, No family history of *CVA/Stroke, No family history of *Sudden /[place] under 55, Family history of *Dental caries Paternal Grandfather Paternal Grandmother Alive Sister 1 Alive Sister: Alive a nd well Sister 2 twin Alive Social History Tobacco Use Types Packs/Day Years [...] on file Sexual Orientation Not on file Last Filed Vital Signs Vital Sign Reading Time Taken Comments Blood Pressure 108/67 01/29/2018 11:40 AM EDT Pulse 72 01/29/2018 11:40 AM EDT Temperature 36.4 C (97.6 F) 01/29/2018 11:40 AM EDT Respiratory Rate - - Oxygen Saturation 96% 03/09/2015 12:00 AM EST Inhaled Oxygen Concentration - - Weight 45.9 kg (101 lb 4 oz) 01/29/2018 11:40 AM EDT Height 154.3 cm (5' 0.75 ) 12/22/2017 9:29 AM ED T Body Mass Index 19.29 12/22/2017 9:29 AM EDT Plan of Treatment Health Maintenance Due Date Last Done Comments DTaP,Tdap,and Td Vaccines (7 - Td or Tdap) 09/29/2019 09/28/2009, 05/27/2001, 10/29/1998, Additional history exists COVID-19 Vaccine ( season) 2024 Hepatitis B Vaccines Completed 1997, 1997, 1997 HIB Vaccines Completed 07/23/1998, 05/1997, 1997, Additional history exists IPV Vaccines Completed 05/27/2001, 11/1999, 1997, Additional history exists MMR Vaccines Completed 05/27/2001, 04/23/1998 Varicella Vaccines Completed 06/09/2007, 04/23/1998 HPV Vaccines Completed 04/25/2010, 10/2009, 09/28/2009 Hepatitis A Vaccines Completed 05/16/2013, 10/08/19 11 Meningococcal Vaccine Completed 05/16/2015, 010 Influenza Vaccines Discontinued 01/12/2019, 1 , 01/30/2016, Additional history exists Men B Vaccine Aged Out No longer elig ible based on patient's age to complete this topic Pneumococcal Vaccine Aged Out No long er eligible based on patient's age to complete this topic Procedures * Due to [place] state law, this organization might not be sharing sensitive test results. Procedure Name Priority Date/Time Associated Diagnosis Comments CHLAMYDIA AND GONORRHEA, AMPLIFIED Routine 12/22/2017 9:30 AM EDT Special screening for bacterial and spirochetal disease from Last 3 Months or Most Recently Relevant to Health Maintenance Results * Due to [facility] law, this organization might not be sharing sensitive test results. * Chlamydia and Gonorrhoea, Amplified (12/22/2017 9:30 AM EDT) Chlamydia Trachomatis, DNA Probe NEGATIVE (NEG) [facility] Comment: No Chlamydia Trachomatis RNA detected in this patient's sample (REFERENCE RANGE/NORMAL VALUE: NOT DETECTED) Note: This test uses children's program coordinator- mediated amplification method to detect rRNA from C. Trachomatis URINE GC AMP PROBE NEGATIVE (NEG) [facility] Comment: No Neisseria Gonorrhoeae RNA detected in this patient's sample (REFERENCE RANGE/NORMAL VALUE: NOT DETECTED) NOTE: This test uses children's program coordinator-mediated amplification method to detect rRNA from N.Gonorrhoeae. A negative result does not preclude infection. In the case of a negative urine result, testing of an endocervical(female) or urethral (male) specimen is recommended if there is high clinical suspicion of infection. Due to very high sensitivity of Nucleic Acid Amplification Test, false positive results may occur. Therefore, specimen handling is extremely important. In patients in whom the disease is unlikely, additional sample for testing should be considered after an initial positive result. The performance characteristics of this test have not been evaluated in children. The Aptima Combo2 assay is not intended for the evaluation of suspected sexual abuse or for other medico-legal indications. The ordering provider should assess if the patient had consensual sex without risk of sexual abuse. Consult the [facility] if needed. Contact phone number . Therapeutic failure or success cannot be determined with the Aptima Combo2 assay since nucleic acid may persist following appropriate antimicrobial therapy. The Centers for Disease Control and Prevention (CDC) recommends confirmatory retesting using culture or a different nucleic acid amplification test when positive results occur, if indicated. Testing performed or reported by [facility], a Service of [facility], [facility] [address], [place] [address] CLIA [id number] Irais Martinez MD, Vessel Scrapper Urine 12/22/2017 9:30 AM EDT 12/23/2017 12:07 AM EDT us Gina Oropeza MD LAB MICROBIOLOGY - GENERAL ORDER YOVANI Final Result [facility] from Last 3 Months or Most Recently Relevant to Health Maintenance
--- OUTSIDE RECORDS SUMMARY | 2024-12-20 08:44 | XMS_ITS | Encounter Summary ---
Author Organization [facility] Address [address] [place] [address] Phone Care Team Providers Care Head Machine Feeder Name Role Phone Provider, Marcello ASHLEY Primary Care Provider [phone] Encounter Details Date Type Department Care Team (Late st Contact Info) Description 01/24/2011 Documentation [facility] [place] Family Medicine [address] [place] [address] Family Medicine, Physician [address], [place] [id number] Social History Tobacco Use Types Packs/Day Years [...] on filedocumented in this encounter Care Teams Head Machine Feeder Relationship Specialty Start Date End Date Provider, MD Marcello [address] [place] [address] PCP - General Pediatrics 11/19/20 07/20/22 documented as of this encounter
--- OUTSIDE RECORDS SUMMARY | 2024-12-20 08:45 | XMS_ITS | Encounter Summary ---
Author Organization [facility] Address [address] [place] [address] Phone Care Team Providers Care Dumper Operator Name Role Phone Provider, Marcello ASHLEY Primary Care Provider [phone] Encounter Details Date Type Department Care Team (Late st Contact Info) Description 11/27/2016 Conversion Encounter [facility] [address] [place] [address] Social History Tobacco Use Types Packs/Day Years Used Date Smoking Tobacco: Never Comments:Never smoker Comments Unknown Sex and Gender Information Value Date Recorded Sex Assigned at Not on file Legal Sex Female 5:03 PM EDT Gender Identity Not on file Sexual Orientation Not on file documented as of this encounter Plan of Treatment Not on file documented as of this encounter Visit Diagnoses Not on filedocumented in this encounter Care Teams Dumper Operator Relationship Specialty Start Date End Date Provider, MD Marcello [address] [place] [phone] PCP - General Pediatrics 11/19/20 07/20/22 documented as of this encounter
--- OUTSIDE RECORDS SUMMARY | 2024-12-20 08:45 | XMS_ITS | Encounter Summary ---
Author Organization [facility] Address [address] [place] [address] Phone Care Team Providers Care Paper Box Cutter Name Role Phone Provider, Marcello ASHLEY Primary Care Provider [phone] Encounter Details Date Type Department Care Team (Late st Contact Info) Description 11/11/2010 [place] [facility] [place] [address] [place] [address] Family Medicine, Physician [address] [id number] Social History Tobacco Use Types Packs/Day Years [...] on filedocumented in this encounter Care Teams Paper Box Cutter Relationship Specialty Start Date End Date Provider, MD Marcello [address] [place] [address] PCP - General Pediatrics 11/19/20 07/20/22 documented as of this encounter
--- OUTSIDE RECORDS SUMMARY | 2024-12-20 08:45 | XMS_ITS | Encounter Summary ---
Author Organization [facility] Address [address] [place] [address] Phone Care Team Providers Care Terminal Make Up Operator Name Role Phone Provider, Marcello AHSLEY Primary Care Provider [phone] Encounter Details Date Type Department Care Team (Late st Contact Info) Description 06/28/2016 Documentation [facility] [place] [address] [place] [address] Family Medicine, Physician [address] [id number] Social History Tobacco Use Types Packs/Day Years [...] on filedocumented in this encounter Care Teams Terminal Make Up Operator Relationship Specialty Start Date End Date Provider, MD Marcello [address] [place] [address] PCP - General Pediatrics 11/19/20 07/20/22 documented as of this encounter
[2024-12-20 11:37] LABS: Hematocrit 38.9 % (37.0-47.0); Hemoglobin 13.1 g/dl (12.0-16.0); Mean Corpuscular HGB Conc 33.7 g/dl (31.0-35.0); Mean Corpuscular Hemoglobin 29.9 pg (27.0-33.0); Mean Corpuscular Volume 88.8 fL (80.0-98.0); NRBC Abs Auto 0.000 X10*3/uL (0.0-0.012); NRBC Pct Auto 0.0 /100WBC (0.0-0.2); Platelet Count 362 X10*3/uL (160-400); Red Blood Count 4.38 X10*6/uL (4.20-5.50); White Blood Count 5.6 X10*3/uL (4.8-10.8)
[2024-12-20 12:12] LABS: Vitamin B12 805 pg/mL (200-900)
[2024-12-20 12:15] LABS: Alanine Aminotransferase 22 U/L (0-31); Albumin Level 4.5 g/dL (3.5-5.0); Alkaline Phosphatase 48 U/L (39-117); Anion Gap 11 (12-20); Aspartate Amino Transferase 27 U/L (5-31); Blood Urea Nitrogen 13 mg/dL (9-16); Calcium 9.5 mg/dL (8.4-10.2); Carbon Dioxide 27 mmol/L (22-29); Chloride 107 mmol/L (96-108); Cholesterol 230 mg/dL (<200); Estimated Glomerular Filt Rate > 60; HDL Cholesterol 49 mg/dL (>40); Potassium 4.2 mmol/L (3.3-5.1); Sodium 141 mmol/L (135-145); Total Protein 7.4 g/dL (6.5-8.0); Triglycerides 141 mg/dL (<150)
[2024-12-24 15:03] LABS: Vitamin D 25-OH, D2 <4 ng/mL; Vitamin D 25-OH, D3 29 ng/mL; Vitamin D 25-OH, Total 29 ng/mL (30-100)
== END 2024-12-20 08:06 | disposition home or self-care (01) ==
LOC: HO.WFDLDS 08:05
PROVIDERS: Visit Provider Physician Assistant Medical
DX: Z00.00 Encounter for general adult medical examination without abnormal findings (principal); M85.80 Other specified disorders of bone density and structure, unspecified site; L65.9 Nonscarring hair loss, unspecified; E78.5 Hyperlipidemia, unspecified; R53.83 Other fatigue; Z91.89 Other specified personal risk factors, not elsewhere classified
CPT/HCPCS: 36415; 80048; 80061; 80076; 82306; 82607; 84443; 85027